=== PATIENT | female | born 1950 | race African-American/Black ===

== ENCOUNTER 2017-08-24 01:48 | Observation (INO) | payer BC ==
[2017-08-24] MEDS ORDERED: KETOROLAC TROMETHAMINE 60 MG/2 ML VIAL IM ONE (03:11)
[2017-08-24] MEDS ORDERED: diazePAM 5 MG TABLET PO ONE (03:12)
[2017-08-24] MEDS ORDERED: KETOROLAC TROMETHAMINE 60 MG/2 ML VIAL ONE (03:40)
[2017-08-24] MEDS ORDERED: diazePAM 5 MG TABLET ONE (03:40)
--- NOTE | 2017-08-24 03:59 | PDOC ---
History of Present Illness - General Chief Complaint: Pain, Acute Stated Complaint: LOWER BACK PAIN Time Seen by Provider: 08/24/17 02:02 - History of Present Illness Initial Comments: 08/24/17 03:58 CHIEF COMPLAINT: low back pain HISTORY OF PRESENT ILLNESS: 66 yo F with hx of insulin dependent diabetes presents to ED with back pain. Patient reports that she has had this problem before and frequently gets constipated and therefore takes laxatives and stool softeners regularly. She went to [facility] recently and had an abdominal CT done and told that she "has a lazy gut." She reports that over the course of the week she has worsening pain and that during this week she has noticed that sometimes "I will lose my urine and go on myself as I am walking to the bathroom." She also reports that it has been more difficulty recently to have bowel movements, even after taking her laxative and stool softeners, she feels "like I'm not getting everything out." No recent travel or sick contacts. PAST MEDICAL HISTORY: Denies past medical history FAMILY HISTORY: Denies SOCIAL HISTORY:Denies tobacco, alcohol, illicit drug use. SURGICAL HISTORY: Denies ALLERGIES: No known drug allergies REVIEW OF SYSTEMS General/Constitutional: Denies fever or chills. Denies weakness, weight change. HEENT: Denies change in vision. Denies ear pain or discharge. Denies sore throat. Cardiovascular: Denies chest pain or shortness of breath. Respiratory: Denies cough, wheezing, or hemoptysis. Gastrointestinal: Chronic constipation. Denies rectal bleeding. Genitourinary: Loss of bladder function. Musculoskeletal: Worsening back pain. Skin and breasts: Denies rash or easy bruising. Neurologic: Denies loss of sensation. PHYSICAL EXAM General Appearance: Well-appearing, appropriately dressed. No apparent distress , no intoxication. HEENT: EOMI, PERRLA, normal ENT inspection, normal voice, TMs normal, pharynx normal. No conjunctival pallor. No photophobia, scleral icterus. Neck: Supple. Trachea midline. No tenderness, rigidity, carotid bruit, stridor , lymphadenopathy, or thyromegaly. Respiratory/Chest: Lungs CTAB. No shortness of breath, chest tenderness, respiratory distress, accessory muscle use. No crackles, rales, rhonchi, stridor , wheezing, dullness Cardiovascular: RRR. S1, S2. Vascular Pulses: Dorsalis-Pedis (R): 2+, Dorsalis-Pedis (L): 2+ Gastrointestinal/Abdominal: Normal rectal tone. Normal bowel sounds. Abdomen soft, non-distended. No tenderness or rebound tenderness. No organomegaly, pulsatile mass, guarding, hernia, hepatomegaly, splenomegaly. Lymphatic: No adenopathy, tenderness. Musculoskeletal/Extremities: Patient unable to ambulate without assistance; tenderness to R lower back with midline tenderness at level of L4/L5. Pelvis Stable. No CVA tenderness. Sensory discrimination intact to b/l legs. No tenderness to extremities, pedal edema, swelling, erythema or deformity. Integumentary: Appropriate color, dry, warm. No cyanosis, erythema, jaundice or rash Neurologic: fish liver sorter II-XII intact. Fully oriented, alert. Appropriate mood/affect. Motor strength 5/5. No appreciable EOM palsy, facial droop or sensory deficit. Past History - Past Medical History Allergies/Adverse Reactions: Allergies Allergy/AdvReac Type Severity Reaction Status Date / Time acetaminophen [From Percocet] Allergy Verified 08/24/17 01:57 naproxen Allergy Verified 08/24/17 01:57 oxycodone HCl [From Percocet] Allergy Verified 08/24/17 01:57 Home Medications: Ambulatory Orders Insulin Detemir [Levemir Flextouch] 10 unit SQ DAILY 05/29/16 COPD: No Diabetes: Yes (NIDDM) - Suicide/Smoking/Psychosocial Hx Smoking History: Never smoked Have you smoked in the past 12 months: No Information on smoking cessation initiated: No Hx Alcohol Use: No Drug/Substance Use Hx: No Substance Use Type: None *Physical Exam - Vital Signs Last Vital Signs Temp Pulse Resp BP Pulse Ox 97.6 F 80 20 117/72 100 08/24/17 01:57 08/24/17 01:57 08/24/17 01:57 08/24/17 01:57 08/24/17 01:57 ED Treatment Course - LABORATORY CBC & Chemistry Diagram: 08/24/17 05:13 08/24/17 05:13 - RADIOLOGY Radiology Studies Ordered: Category Date Time Status LUMBAR SPINE CT W/O CONTRAST [CT] Stat CT Scan 08/24/17 02:35 Taken Medical Decision Making - Medical Decision Making 08/24/17 04:22 66 yo F with hx of insulin dependent diabetes presents to ED with worsening back pain. -UA, UCx -lumbar spine CT CT results: FINDINGS: There is a grade 1 degenerative anterolisthesis of L4 on L5 with associated facet arthrosis. There is diffuse ankylosis of the posterior elements and ossification of the anterior longitudinal ligament, suggesting ankylosis spondylitis, but the SI joints are not fused or demonstrate discrete erosions. Mild bilateral neural foraminal narrowing is noted at the L4-5 level secondary to facet joint arthrosis and geometric distortion from listhesis. There is also mild L5/S1 neural although there is osteoarthritis of both SI joints foraminal narrowing secondary to facet joint arthrosis IMPRESSION: Questionable ankylosing spondylitis although there is no fusion or erosions of the SI joints. Mild neural foraminal narrowing at the L4-5 and L5/S1 level due to degenerative changes. Consider MRI followup. Read by: Keanu Franz MD Will admit for obs to be seen by neurology in the morning. Discussed case with patient's PCP MD Rolon who accepts patient for observation. Neuro consult placed. *DC/Admit/Observation/Transfer Diagnosis at time of Disposition: Back pain at L4-L5 level - Discharge Dispostion Admit: Yes - Referrals Referrals: Chelita Rolon MD [Primary Care Provider] - - Patient Instructions - Post Discharge Activity
[2017-08-24 04:27] LABS: URINE APPEARANCE SLCLOUDY; URINE BILIRUBIN NEGATIVE (NEGATIVE); URINE BLOOD NEGATIVE (NEGATIVE); URINE COLOR YELLOW; URINE GLUCOSE (UA) NEGATIVE (NEGATIVE); URINE KETONE TRACE (NEGATIVE); URINE LEUK ESTERASE NEGATIVE (NEGATIVE); URINE NITRITE NEGATIVE (NEGATIVE); URINE PROTEIN NEGATIVE (NEGATIVE); URINE UROBILINOGEN NEGATIVE mg/dL (0.2-1.0)
[2017-08-24 05:28] LABS: BASO % 0.5 % (0-2.0); EOS % 0.7 % (0-4.5); HEMATOCRIT 39.3 % (32.4-45.2); HEMOGLOBIN 12.9 GM/dL (10.7-15.3); LYMPH % 37.8 % (8-40); MCH 27.3 pg (25.7-33.7); MCHC 32.8 g/dl (32.0-36.0); MEAN CELL VOLUME 83.1 fl (80-96); MEAN PLT VOLUME 8.5 fl (7.5-11.1); MONO % 9.4 % (3.8-10.2); NEUT % 51.6 % (42.8-82.8); PLATELET COUNT 258 K/MM3 (134-434); RBC 4.73 M/mm3 (3.60-5.2); RDW 14.3 % (11.6-15.6); WHITE BLOOD COUNT 6.2 K/mm3 (4.0-10.0)
[2017-08-24 07:03] LABS: ALBUMIN 3.5 g/dl (3.4-5.0); ALK PHOS 106 U/L (45-117); ANION GAP 9 (8-16); BILIRUBIN,TOTAL 0.5 mg/dL (0.2-1.0); BLOOD UREA NITROGEN 7 mg/dL (7-18); CALCIUM 9.2 mg/dL (8.5-10.1); CHLORIDE 103 mmol/L (98-107); CO2 27 mmol/L (21-32); CREATININE 0.4 mg/dL (0.55-1.02); GLUCOSE,RANDOM 140 mg/dL (74-106); SGPT/ALT 24 U/L (12-78); SODIUM 139 mmol/L (136-145); TOT PROT 7.2 g/dl (6.4-8.2)
[2017-08-24 07:21] LABS: POTASSIUM 4.5 mmol/L (3.5-5.1); SGOT/AST 23 U/L (15-37)
[2017-08-24 08:48] VITALS: BMI 30.7
[2017-08-24] MEDS ORDERED: diazePAM 5 MG TABLET PO PRN (11:13)
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
[2017-08-24] MEDS: INSULIN SLIDING SCALE (NOVOLOG) 1 VIAL SQ SCH ×2 (17:25→21:32)
[2017-08-24] MEDS: INSULIN DETEMIR 100 UNITS/ML MDV SQ SCH (21:33)
[2017-08-24] MEDS: KETOROLAC TROMETHAMINE 30 MG/1 ML VIAL IM PRN (22:51)
--- NOTE | 2017-08-24 22:52 | HP ---
Admitting History and Physical - Admission History of Present Illness: low back pain HISTORY OF PRESENT ILLNESS: 66 yo F with hx of insulin dependent diabetes presents to ED with back pain. Patient reports that she has had this problem before and frequently gets constipated and therefore takes laxatives and stool softeners regularly. She went to [facility] recently and had an abdominal CT done and told that she "has a lazy gut." She reports that over the course of the week she has worsening pain and that during this week she has noticed that sometimes "I will lose my urine and go on myself as I am walking to the bathroom." She also reports that it has been more difficulty recently to have bowel movements, even after taking her laxative and stool softeners, she feels "like I'm not getting everything out." History Source: Patient, Medical Record Limitations to Obtaining History: No Limitations - Past Medical History Gastrointestinal: Yes: Constipation Reproductive: Yes: Postmenopausal ...: No - Advance Directives Advance Directives: Yes: Living Will - Smoking History Smoking history: Never smoked Have you smoked in the past 12 months: No - Alcohol/Substance Use Hx Alcohol Use: No History of Substance Use: reports: None - Social History ADL: Independent History of Recent Travel: No Home Medications - Allergies Allergies/Adverse Reactions: Allergies Allergy/AdvReac Type Severity Reaction Status Date / Time acetaminophen [From Percocet] Allergy Verified 08/24/17 01:57 naproxen Allergy Verified 08/24/17 01:57 oxycodone HCl [From Percocet] Allergy Verified 08/24/17 01:57 - Home Medications Home Medications: Ambulatory Orders Insulin Detemir [Levemir Flextouch] 10 unit SQ DAILY 05/29/16 Review of Systems - Review of Systems Constitutional: reports: No Symptoms Eyes: reports: No Symptoms HENT: reports: No Symptoms Neck: reports: No Symptoms Cardiovascular: reports: No Symptoms Respiratory: reports: No Symptoms Gastrointestinal: reports: Bloating, Constipation, Indigestion. denies: Melena , Vomiting, Vomiting Blood Genitourinary: reports: Incontinence. denies: Dysuria, Flank Pain, Hematuria, Urgency Breasts: reports: No Symptoms Reported Musculoskeletal: reports: Back Pain, Extremity Pain (right leg) Integumentary: reports: No Symptoms Neurological: reports: No Symptoms, Parasthesia (right), Pre-Existing Deficit, Unsteady Gait Endocrine: reports: No Symptoms Hematology/Lymphatic: reports: No Symptoms Psychiatric: reports: No Symptoms Physical Examination Vital Signs: Vital Signs Temperature 98.3 F 08/24/17 17:18 Pulse Rate 72 08/24/17 17:18 Respiratory Rate 18 08/24/17 17:18 Blood Pressure 111/49 08/24/17 17:18 O2 Sat by Pulse Oximetry (%) 98 08/24/17 11:07 Constitutional: Yes: Well Nourished, No Distress, Calm Eyes: Yes: WNL, Conjunctiva Clear, EOM Intact HENT: Yes: Atraumatic, Normocephalic Neck: Yes: Supple, Trachea Midline Cardiovascular: Yes: Regular Rate and Rhythm Respiratory: Yes: Regular, CTA Bilaterally Gastrointestinal: Yes: Normal Bowel Sounds, Soft, Distention ...Rectal Exam: Yes: Deferred Renal/: Yes: WNL Breast(s): Yes: WNL Musculoskeletal: Yes: Back Pain, Other (radiating right leg pain weakness) Edema: No Peripheral Pulses WNL: Yes Integumentary: Yes: WNL Neurological: Yes: Numbness (right leg), Paresthesia (right leg), Unresponsive ...Motor Strength: RUE (decreased) Psychiatric: Yes: Alert, Oriented Labs: CBC, BMP 08/24/17 05:13 08/24/17 06:18 Problem List - Problems (1) Back pain at L4-L5 level Code(s): M54.5 - LOW BACK PAIN (2) Diabetes Code(s): E11.9 - TYPE 2 DIABETES MELLITUS WITHOUT COMPLICATIONS (3) Abdominal pain Code(s): R10.9 - UNSPECIFIED ABDOMINAL PAIN Qualifiers: Abdominal location: generalized Qualified Code(s): R10.84 - Generalized abdominal pain
[2017-08-25] MEDS: INSULIN SLIDING SCALE (NOVOLOG) 1 VIAL SQ SCH ×4 (06:15→21:06)
[2017-08-25 07:35] LABS: BASO % 0.6 % (0-2.0); EOS % 2.1 % (0-4.5); HEMATOCRIT 35.5 % (32.4-45.2); HEMOGLOBIN 11.5 GM/dL (10.7-15.3); LYMPH % 58.1 % (8-40); MCH 27.1 pg (25.7-33.7); MCHC 32.3 g/dl (32.0-36.0); MEAN CELL VOLUME 83.9 fl (80-96); MEAN PLT VOLUME 7.9 fl (7.5-11.1); MONO % 8.4 % (3.8-10.2); NEUT % 30.8 % (42.8-82.8); PLATELET COUNT 236 K/MM3 (134-434); RBC 4.23 M/mm3 (3.60-5.2); RDW 14.1 % (11.6-15.6); WHITE BLOOD COUNT 5.2 K/mm3 (4.0-10.0)
[2017-08-25 07:39] LABS: ALBUMIN 3.1 g/dl (3.4-5.0); ANION GAP 5 (8-16); BLOOD UREA NITROGEN 13 mg/dL (7-18); CALCIUM 8.3 mg/dL (8.5-10.1); CHLORIDE 105 mmol/L (98-107); CO2 29 mmol/L (21-32); GLUCOSE,RANDOM 101 mg/dL (74-106); MAGNESIUM 1.9 mg/dL (1.8-2.4); POTASSIUM 4.2 mmol/L (3.5-5.1); SGOT/AST 10 U/L (15-37); SODIUM 139 mmol/L (136-145)
[2017-08-25 07:41] LABS: CREATININE 0.4 mg/dL (0.55-1.02)
[2017-08-25 07:42] LABS: ALK PHOS 102 U/L (45-117); BILIRUBIN,TOTAL 0.3 mg/dL (0.2-1.0); PHOSPHOROUS 4.7 mg/dL (2.5-4.9); SGPT/ALT 21 U/L (12-78); TOT PROT 6.2 g/dl (6.4-8.2)
[2017-08-25] MEDS: LISINOPRIL 5 MG TABLET (FP) PO SCH (09:16)
--- NOTE | 2017-08-25 11:35 | PN ---
Progress Note (short form) - Note Progress Note: sitting in bed more comfortable today last night inc pain treated with ketoralac with improvement discussed evaluations to be done including MRI she reports she has ahd MRI in the past she also report hardware in left ankle Vital Signs Period Temp Pulse Resp BP Sys/Liang Pulse Ox Last 24 Hr 97.7 F-98.3 F 58-75 18-20 111-141/49-79 98-98 neck supple heart S1/S2 lungs clear bilat abd soft non tender ext no edema +palpable defority left ankle ( +tenderness with exam) numbness remains to right LE CBC, BMP 08/25/17 06:30 08/25/17 06:30 Microbiology 08/24/17 04:14 Urine - Urine Clean Catch Urine Culture - Final Active Medications Diazepam (Valium -) 5 mg PO Q8H PRN PRN Reason: BACK SPASMS Insulin Aspart (Novolog Vial Sliding Scale -) 1 vial SQ ACHS JOSE PRN Reason: Protocol Last Admin: 08/25/17 06:15 Dose: Not Given Insulin Detemir (Levemir Vial) 10 units SQ HS [facility] Last Admin: 08/24/17 21:33 Dose: 10 units Ketorolac Tromethamine (Toradol Injection -) 30 mg IM Q6H PRN PRN Reason: PAIN LEVEL 5-10 Stop: 08/29/17 22:43 Last Admin: 08/24/17 22:51 Dose: 30 mg Lisinopril (Prinivil) 5 mg PO DAILY [facility] Last Admin: 08/25/17 09:16 Dose: Not Given # acute on chronic back pain long standing back pain recently so bad began to have Gu/Gi problems Neurology / neurosurgical evaluation will need MRI pain management / physical therapy discussed pending work up with patient and possible options # DM insulin dependent on sliding scale Problem List - Problems (1) Back pain at L4-L5 level Code(s): M54.5 - LOW BACK PAIN (2) Diabetes Code(s): E11.9 - TYPE 2 DIABETES MELLITUS WITHOUT COMPLICATIONS (3) Abdominal pain Code(s): R10.9 - UNSPECIFIED ABDOMINAL PAIN Qualifiers: Abdominal location: generalized Qualified Code(s): R10.84 - Generalized abdominal pain
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
[2017-08-25] MEDS: INSULIN DETEMIR 100 UNITS/ML MDV SQ SCH (21:06)
[2017-08-25] MEDS ORDERED: PREGABALIN 75 MG CAPSULE PO SCH (22:00)
[2017-08-25] MEDS: POLYETHYLENE GLYCOL 3350 119 GM BTL PO SCH (23:47)
[2017-08-25] MEDS: DOCUSATE SODIUM 100 MG CAPSULE (FP) PO SCH (23:48)
[2017-08-26] MEDS: KETOROLAC TROMETHAMINE 30 MG/1 ML VIAL IM PRN (01:33)
[2017-08-26] MEDS ORDERED: INSULIN (NOVOLOG) ASPART 100 UNITS/ML 10ML VIAL ONE ×2 (07:12→20:36)
--- NOTE | 2017-08-26 09:09 | CONS ---
PHYSICAL MEDICINE REHABILITATION CONSULTATION REFERRING PHYSICIAN: Chelita Rolon MD DATE OF ADMISSION: 08/24/2017 DATE OF EVALUATION: 08/26/2017 HISTORY OF PRESENT ILLNESS: The patient is a 66-year-old woman with a past medical history of a insulin-dependent diabetes and intermittent chronic low back pain who was admitted on August 24, 2017, with increasing low back pain. Patient evidently had developed pain and fullness in her back and abdomen recently. She went to [facility] and thought she was constipated. At the time, she had a CT of the abdomen and was told she was constipated. The pain worsened over the week prior to admission, but was more localized across the back, sometimes radiating into the right lateral hip and buttocks. Patient underwent neurologic evaluation on August 24 as well as MRI of the lumbosacral spine, which demonstrated some facet arthropathy. Patient is on gabapentin 300 mg at bedtime and cyclobenzaprine. MRI report reviewed, and there was grade 1 anterolisthesis of L4 on L5, which was unchanged from prior study. There was also severe facet arthropathy, left more than right, at L4-L5 with no significant canal stenosis, but mild narrowing of the left neuroforamen as well as the right neuroforamen without any definite impingement. At L5-S1, there was bulging disc and bilateral posterior facet arthropathy, severe on the right, with mild narrowing of the right neuroforamen. Patient states she was given a Toradol shot and currently is feeling much better with less discomfort. Blood work showed normal CBC on admission as well as on followup August 25, with WBC 5.2, hemoglobin 11.5, platelet count 236. Chemistry within normal limits except that she has a slightly low creatinine of 0.4, normal sodium 139, normal potassium 4.2, chloride 105, and CO2 at 29, her albumin was low at 3.1. Patient also is on Valium 5 mg, MiraLAX, Toradol injections. Per her medication list, she is not taking gabapentin at bedtime. She is also on Colace. REVIEW OF PAST MEDICAL AND SURGICAL HISTORY: Insulin-dependent diabetes, chronic intermittent back pain, intermittent constipation. SOCIAL HISTORY: She lives with her in an apartment. There is an elevator for access. She denies any tobacco or alcohol. Premorbidly, she states she was ambulating without assistive device. ALLEGIES: OXYCODONE/ACETAMINOPHEN and NAPROXEN. REVIEW OF SYSTEMS: No current lightheadedness, dizziness. No blurry vision or double vision. No nausea, vomiting, difficulty swallowing. No chest pain or shortness of breath. No fever or chills. No bowel/bladder incontinence or retention, although she has been constipated in the past. No numbness/tingling in the upper or lower extremities. No gait instability, but she was having difficulty ambulating due to back pain. PHYSICAL EXAMINATION: General: On examination, an overweight woman, seen lying in bed as well as sitting and standing, in no acute distress. HEENT: She is normocephalic and atraumatic. Extraocular muscles appear intact. Neck: Supple. Lumbar: She has difficulty with extension 0-10 degrees with pain. No palpable spasm in the lumbosacral paraspinal, but diffuse tenderness. She is much better tolerated for reflection, negative [id number] test in both lower extremities. Extremities: No edema or calf tenderness. Skin: No rash. Neuromuscular: She is awake, alert, oriented x3. Cranial nerves 2-12 grossly intact. Good strength and range in the upper extremities and good strength and range in the lower extremities except for the hip girdle which causes a little bit of back pain. Normal sensation to light touch and pinprick. Symmetric reflexes, 1-2+ in the upper extremities, 2+ knee jerk, and 1+ ankle jerk. She has good standing balance and is able to ambulate without assistive device. OVERALL IMPRESSION: 1. Low back pain with underlying L4-L5 and L5-S1 facet arthropathy. 2. Deficits mobility. 3. Status post constipation. 4. Insulin-dependent diabetes. 5. Hypoalbuminemia. 6. Elevated risk for deep venous thrombosis due to immobility. PLANS AND SUGGESTIONS: 1. Consider pain management for facet block and possible radiofrequency ablation if pain continues. 2. Continue pain management. 3. Physical therapy for mobilization. 4. Would benefit from outpatient physical therapy. 5. Weight reduction. 6. Consider DVT prophylaxis until more mobile, subcutaneous heparin 5000 units q.12 hours. 7. Discharge planning home without outpatient therapy, car provided. Thank you for this referral. NEERAJ BAH M.D. ALESSIA/[id number]
[2017-08-26] MEDS: POLYETHYLENE GLYCOL 3350 119 GM BTL PO SCH (09:30)
[2017-08-26] MEDS: LISINOPRIL 5 MG TABLET (FP) PO SCH (09:30)
[2017-08-26] MEDS: INSULIN SLIDING SCALE (NOVOLOG) 1 VIAL SQ SCH ×4 (10:03→21:37)
--- NOTE | 2017-08-26 10:55 | DS ---
Physical Examination Vital Signs: Vital Signs Temperature 98.1 F 08/26/17 10:00 Pulse Rate 69 08/26/17 10:00 Respiratory Rate 20 08/26/17 10:00 Blood Pressure 110/70 08/26/17 10:00 O2 Sat by Pulse Oximetry (%) 97 08/26/17 03:00 Findings/Remarks: HISTORY OF PRESENT ILLNESS: 66 yo F with hx of insulin dependent diabetes presents to ED with back pain. Patient reports that she has had this problem before and frequently gets constipated and therefore takes laxatives and stool softeners regularly. She went to [facility] recently and had an abdominal CT done and told that she "has a lazy gut." She reports that over the course of the week she has worsening pain and that during this week she has noticed that sometimes "I will lose my urine and go on myself as I am walking to the bathroom." She also reports that it has been more difficulty recently to have bowel movements, even after taking her laxative and stool softeners, she feels "like I'm not getting everything out." Pain progress to complete incapacity - she reports is unable to get up and difficulty walking / pain not controlled with home management. Constitutional: Yes: Well Nourished, No Distress, Calm Eyes: Yes: WNL HENT: Yes: WNL, Atraumatic, Normocephalic Neck: Yes: WNL, Supple, Trachea Midline Cardiovascular: Yes: WNL, Regular Rate and Rhythm Respiratory: Yes: Regular, CTA Bilaterally Gastrointestinal: Yes: Normal Bowel Sounds, Soft ...Rectal Exam: Yes: Deferred Renal/: Yes: WNL Breast(s): Yes: WNL Musculoskeletal: Yes: WNL, Back Pain Extremities: No: Cyanosis, Deformity, External Rotation, Internal Rotation Edema: No Peripheral Pulses WNL: Yes Integumentary: Yes: WNL Neurological: Yes: Alert, Oriented ...Motor Strength: LUE (weakness), LLE (waekness) Psychiatric: Yes: Alert, Oriented Labs: CBC, BMP 08/25/17 06:30 08/25/17 06:30 Discharge Summary Reason For Visit: BACK PAIN Current Active Problems Back pain at L4-L5 level (Acute) Diabetes (Acute) Hospital Course: patient evaluated by Neurology / neurosurgery / and Physical therapy After review of imaging and physical exam all options discussed with patient . conservative treatment is best option and she prefers PT /would like to avoid narcotics. Arrangements for STR / vs out patient with home PT Insurance coverage and authorization may dictate discharge decision Condition: Fair - Instructions Referrals: Chelita Rolon MD [Primary Care Provider] - - Home Medications Comprehensive Discharge Medication List: Ambulatory Orders Insulin Detemir [Levemir Flextouch] 10 unit SQ DAILY 05/29/16 Tylenol 500mg PO q 8 hour PRN for pain Miralx 1 scoop with 6 OZ daily colace 200mg PO BID
[2017-08-26] MEDS ORDERED: MAGNESIUM CITRATE 300 ML BOTTLE PO ONE ×2 (12:00→15:00)
--- NOTE | 2017-08-26 12:25 | PN ---
Progress Note (short form) - Note Progress Note: MRI reviewed. No acute pathology mandating urgent Neurosurgical intervention. Case discussed with Dr. Rolon. I agree with plans for Pain Management at this time.
[2017-08-26] MEDS: DOCUSATE SODIUM 100 MG CAPSULE (FP) PO SCH (21:37)
[2017-08-26] MEDS: INSULIN DETEMIR 100 UNITS/ML MDV SQ SCH (21:38)
[2017-08-27] MEDS: INSULIN SLIDING SCALE (NOVOLOG) 1 VIAL SQ SCH ×2 (06:38→11:59)
[2017-08-27] MEDS ORDERED: PT OWN MED DRAWER 7, Y5N ONE (10:24)
[2017-08-27] MEDS: LISINOPRIL 5 MG TABLET (FP) PO SCH (10:30)
[2017-08-27] MEDS: POLYETHYLENE GLYCOL 3350 119 GM BTL PO SCH (10:31)
--- NOTE | 2017-08-27 12:06 | DS ---
Physical Examination Vital Signs: Vital Signs Temperature 98.3 F 08/27/17 05:37 Pulse Rate 72 08/27/17 05:37 Respiratory Rate 20 08/27/17 05:37 Blood Pressure 137/75 08/27/17 05:37 O2 Sat by Pulse Oximetry (%) 97 08/27/17 04:26 Labs: CBC, BMP 08/25/17 06:30 08/25/17 06:30 Discharge Summary Reason For Visit: BACK PAIN Current Active Problems Back pain at L4-L5 level (Acute) Diabetes (Acute) Condition: Fair - Instructions Referrals: Chelita Rolon MD [Primary Care Provider] - Disposition: HOME - Home Medications Comprehensive Discharge Medication List: Ambulatory Orders Insulin Detemir [Levemir Flextouch] 10 unit SQ DAILY 05/29/16 Docusate Sodium [Colace -] 200 mg PO HS capsule 08/27/17 Insulin (Levemir) [Levemir Vial] 10 units SQ HS ml 08/27/17 Polyethylene Glycol 3350 [Miralax 119 gm Btl -] 17 gm PO DAILY bottle 08/27/17
--- NOTE | 2017-08-27 12:24 | PN ---
Progress Note (short form) - Note Progress Note: seen in her room was ambulating in room report pain to left foot lateral and base of 5th digit Vital Signs Period Temp Pulse Resp BP Sys/Liang Pulse Ox Last 24 Hr 97.9 F-98.5 F 65-82 18-20 120-143/52-90 97-97 neck supple heart reg lungs clear bilat abd soft non tender ext no edema left foot no evidence of injury no swelling / erythema / or deformity CBC, BMP 08/25/17 06:30 08/25/17 06:30 Microbiology 08/24/17 04:14 Urine - Urine Clean Catch Urine Culture - Final Active Medications Docusate Sodium (Colace -) 200 mg PO HS JOSE Last Admin: 08/26/17 21:37 Dose: 200 mg Insulin Aspart (Novolog Vial Sliding Scale -) 1 vial SQ ACHS JOSE PRN Reason: Protocol Last Admin: 08/27/17 11:59 Dose: Not Given Insulin Detemir (Levemir Vial) 10 units SQ HS [facility] Last Admin: 08/26/17 21:38 Dose: 10 units Ketorolac Tromethamine (Toradol Injection -) 30 mg IM Q6H PRN PRN Reason: PAIN LEVEL 5-10 Stop: 08/29/17 22:43 Last Admin: 08/26/17 01:33 Dose: 30 mg Lisinopril (Prinivil) 5 mg PO DAILY [facility] Last Admin: 08/27/17 10:30 Dose: Not Given Polyethylene Glycol (Miralax (For Daily Use) -) 17 gm PO DAILY [facility] Last Admin: 08/27/17 10:31 Dose: Not Given # Chronic back pain acute exacerbation neuro / NS / PT eval conservative treatment home care and home PT # DM resume insulin magement follow up as out patient Problem List - Problems (1) Back pain at L4-L5 level Code(s): M54.5 - LOW BACK PAIN (2) Diabetes Code(s): E11.9 - TYPE 2 DIABETES MELLITUS WITHOUT COMPLICATIONS (3) Abdominal pain Code(s): R10.9 - UNSPECIFIED ABDOMINAL PAIN Qualifiers: Abdominal location: generalized Qualified Code(s): R10.84 - Generalized abdominal pain
[2017-08-27 14:42] VITALS: BP 129/64; PULSE 64; TEMP 99.5
== END 2017-08-27 16:04 | disposition home health service (06) ==
LOC: JER 01:48 → JERBED 06:17 → J7W 08:22 → J6S 08-27 00:38
PROVIDERS: ADMIT Family Medicine; ATTEND Family Medicine
PROC: 3E0233Z Introduction of Anti-inflammatory into Muscle, Percutaneous Approach (ICD-10-PCS; principal; 2017-08-24)
PROC: 3E013VG Introduction of Insulin into Subcutaneous Tissue, Percutaneous Approach (ICD-10-PCS; 2017-08-24)
DX: M54.5 Low back pain (principal); E11.9 Type 2 diabetes mellitus without complications; R10.84 Generalized abdominal pain; M47.9 Spondylosis, unspecified; G89.29 Other chronic pain; E88.09 Other disorders of plasma-protein metabolism, not elsewhere classified; Z88.8 Allergy status to other drugs, medicaments and biological substances; Z79.4 Long term (current) use of insulin
CPT/HCPCS: 36415; 72131-TC; 72148-TC; 73610-TC-LT-FY; 73630-TC-LT; 80053; 81003; 82962; 83036; 83735; 84100; 85025; 85651; 86140; 87086; 97116-GP; 97161-GP; 99283-25; G0378

== ENCOUNTER 2018-08-11 16:35 | Emergency (ER) | payer BC ==
[2018-08-11 17:01] VITALS: BP 130/63; PULSE 82; TEMP 97.9; BMI 33.0
[2018-08-11] MEDS ORDERED: ACETAMINOPHEN 325 MG TABLET (FP) PO ONE (17:03)
--- NOTE | 2018-08-11 17:06 | PDOC ---
Rapid Medical Evaluation Chief Complaint: Injury Time Seen by Provider: 08/11/18 17:00 Medical Evaluation: Allergies Allergy/AdvReac Type Severity Reaction Status Date / Time acetaminophen [From Percocet] Allergy Verified 08/11/18 16:55 naproxen Allergy Verified 08/11/18 16:55 oxycodone HCl [From Percocet] Allergy Verified 08/11/18 16:55 Vital Signs Temp Pulse Resp BP Pulse Ox 97.9 F 82 17 130/63 99 08/11/18 16:57 08/11/18 16:57 08/11/18 16:57 08/11/18 16:57 08/11/18 16:57 08/11/18 17:04 I have performed a brief in-person evaluation of this patient. The patient presents with a chief complaint of: R sided neck/shoulder/knee/hand pain s/p fall a couple of hours ago. Denies head trauma, no LOC Pertinent physical exam findings: R sided paraspinal muscular neck tenderness, no midline tenderness, Diffuse R shoulder/knee and hand tenderness. NO swelling I have ordered the following: R shoulder/knee/hand xrays, tylenol. Pt says that she is allergic to percocet but not tylenol The patient will proceed to the ED for further evaluation. Discharge Disposition - Diagnosis Fall Qualifiers: Encounter type: initial encounter Qualified Code(s): W19.XXXA - Unspecified fall, initial encounter - Referrals - Patient Instructions - Post Discharge Activity
[2018-08-11] MEDS ORDERED: ACETAMINOPHEN 325 MG TABLET (FP) ONE (17:45)
[2018-08-11] MEDS ORDERED: LIDOCAINE 5% TOPICAL PATCH TP ONE (18:34)
[2018-08-11] MEDS ORDERED: IBUPROFEN 600 MG TABLET (FP) PO ONE ×2 (18:34→18:41)
[2018-08-11] MEDS ORDERED: LIDOCAINE 5% TOPICAL PATCH ONE (18:41)
--- NOTE | 2018-08-11 18:46 | PDOC ---
History of Present Illness - General Chief Complaint: Injury Stated Complaint: FALL Time Seen by Provider: 08/11/18 17:00 History Source: Patient Exam Limitations: No Limitations Past History - Past Medical History Allergies/Adverse Reactions: Allergies Allergy/AdvReac Type Severity Reaction Status Date / Time naproxen Allergy Verified 08/11/18 16:55 oxycodone HCl [From Percocet] Allergy Verified 08/11/18 16:55 Home Medications: Ambulatory Orders Lidocaine 5% Patch [Lidoderm -] 1 patch TP DAILY #30 patch 08/11/18 COPD: Yes (bronchitis) Diabetes: Yes (NIDM) - Surgical History Orthopedic Surgery: Yes (l ankle screws and shunt) - Immunization History Immunization Up to Date: Yes - Suicide/Smoking/Psychosocial Hx Smoking History: Never smoked Have you smoked in the past 12 months: No Hx Alcohol Use: No Drug/Substance Use Hx: No Substance Use Type: None *Physical Exam - Vital Signs Last Vital Signs Temp Pulse Resp BP Pulse Ox 97.9 F 82 17 130/63 99 08/11/18 16:57 08/11/18 16:57 08/11/18 16:57 08/11/18 16:57 08/11/18 16:57 - Physical Exam General Appearance: No: Apparent Distress HEENT: positive: Other (Head atraumatic) Neck: positive: Supple. negative: Rigidity, Tender lateral, Tender midline Respiratory/Chest: positive: Lungs Clear, Normal Breath Sounds. negative: Respiratory Distress Cardiovascular: positive: Regular Rhythm, Regular Rate, S1, S2. negative: Murmur Musculoskeletal: positive: Other (+Pain with movement of R shoulder ( particularly abduction and external rotation), no step off, no deformity, no swelling of RUE, no snuffbox tenderness; able to flex/extend R knee) Integumentary: positive: Normal Color Neurologic: positive: robot operator II-XII NML intact, Fully Oriented, Alert, Normal Mood/ Affect Moderate Sedation - Procedure Monitoring Vital Signs: Procedure Monitoring Vital Signs Temperature 97.9 F 08/11/18 16:57 Pulse Rate 82 08/11/18 16:57 Respiratory Rate 17 08/11/18 16:57 Blood Pressure 130/63 08/11/18 16:57 O2 Sat by Pulse Oximetry (%) 99 08/11/18 16:57 ED Treatment Course - Medications Given in the ED: ED Medications Discontinued Medications Generic Name Dose Route Start Last Admin Trade Name Gretta PRN Reason Stop Dose Admin Acetaminophen 975 mg 08/11/18 17:03 08/11/18 17:52 Tylenol - PO 08/11/18 17:04 975 mg ONCE ONE Administration Medical Decision Making - Medical Decision Making 67 y/o F hx DM, anklyosing spondylitis presents with R sided pain after someone fell on her at [employer] today. Main site of pain is R shoulder, but also has some pain in R hand and R knee. Mentions she has injured her L shoulder last year and is undergoing physical therapy for this; recently had L shoulder and neck MRI done, with results pending, but it is possible she may have rotator cuff injury of L shoulder. Currently uses cane at baseline to get around. Mentions she hit front side of head on floor, but no LOC occurred. Denies n/v, visual/gait changes, numbness/tingling of extremities Xrays reviewed - no fracture/dislocation noted Slight narrowing along medial aspect of R knee joint Possible rotator cuff injury of R shoulder given its appearance on xray Patient given Tylenol in triage, but states usually Tylenol is ineffective and Motrin is more effective for her Given Motrin 600 mg and Lidocaine patch Patient has seen orthopedics once last year, but prefers different orthopedic doctor 08/11/18 18:43 *DC/Admit/Observation/Transfer Diagnosis at time of Disposition: Fall Qualifiers: Encounter type: initial encounter Qualified Code(s): W19.XXXA - Unspecified fall, initial encounter - Discharge Dispostion Disposition: HOME Condition at time of disposition: Stable Decision to Admit order: No - Prescriptions Prescriptions: Lidocaine 5% Patch [Lidoderm -] 1 patch TP DAILY #30 patch - Referrals Referrals: James Wooten [Primary Care Provider] - 3 days Pilo Christiansen DO [Staff Physician] - Call tomorrow - Patient Instructions Printed Discharge Instructions: DI for Rotator Cuff Injury Additional Instructions: Thank you for choosing [facility]. It was a pleasure taking care of you. You may take Tylenol 650 mg or Motrin 600 mg every 4 hours by mouth as needed for mild to moderate pain. Take Motrin with food. Do not take more than 4000 mg of Tylenol in 1 day. Also be aware that Motrin can affect your kidneys. You can also apply lidocaine patch to your right shoulder to help with pain Continue your physical therapy You were referred to orthopedic - call for further follow-up Return to the Emergency Department if your symptoms worsen or persist or have other concerning symptoms. - Post Discharge Activity
[2018-08-11] MEDS ORDERED: LIDOCAINE PATCH REMOVAL MC SCH (22:00)
== END 2018-08-11 19:22 | disposition home or self-care (01) ==
LOC: JERFT 16:35
DX: M54.2 Cervicalgia (principal); M25.511 Pain in right shoulder; M25.561 Pain in right knee; M79.641 Pain in right hand; W18.39XA Other fall on same level, initial encounter; Y93.89 Activity, other specified; Y92.512 Supermarket, store or market as the place of occurrence of the external cause; Y99.8 Other external cause status; E11.9 Type 2 diabetes mellitus without complications; Z79.84 Long term (current) use of oral hypoglycemic drugs; M45.9 Ankylosing spondylitis of unspecified sites in spine
CPT/HCPCS: 73030-TC-RT-FY; 73130-TC-RT-FY; 73562-TC-RT-FY; 99281-25

== ENCOUNTER 2019-02-25 23:51 | Inpatient (IN) | payer BC ==
[2019-02-26 00:08] VITALS: BMI 32.5
--- NOTE | 2019-02-26 00:42 | PDOC ---
History of Present Illness - General Chief Complaint: Pain, Acute Stated Complaint: CHEST DISCOMFORT Time Seen by Provider: 02/25/19 23:59 History Source: Patient Exam Limitations: No Limitations - History of Present Illness Initial Comments: 02/26/19 00:22 68 yo female pmh christiano spon, DM and recent elevation in cholesterol levels per recent blood work presents to the ED with sudden onsent non exertional CP. Pt states while resting in bed, she noted sudden onset RUQ abdominal pain that turned into CP described as pressure like with radiation down the left arm and into the left jaw with associated SOB. Pt states the pain comes in waves lasting 3 min. Pt took 81 mg ASA at home prior to calling EMS. Denies palpitations,F/C/N/V, current abdominal pain, back pain, changes in bowel or bladder habits Past History - Past Medical History Allergies/Adverse Reactions: Allergies Allergy/AdvReac Type Severity Reaction Status Date / Time naproxen Allergy Verified 02/26/19 00:08 oxycodone HCl [From Percocet] Allergy Verified 02/26/19 00:08 Home Medications: Ambulatory Orders Glipizide [Glucotrol -] 5 mg PO DAILY 02/26/19 Aspirin [ASA -] 81 mg PO DAILY #30 tab.chew 03/01/19 Atorvastatin Ca [Lipitor] 20 mg PO HS #30 tablet 03/01/19 Losartan Potassium [Cozaar -] 25 mg PO DAILY@0600 #30 tablet 03/01/19 Polyethylene Glycol 3350 [Miralax 119 gm Btl -] 17 gm PO DAILY #0 bottle COPD: No Diabetes: Yes (NIDM) - Surgical History Orthopedic Surgery: Yes (l ankle screws and shunt) - Immunization History Immunization Up to Date: Yes - Suicide/Smoking/Psychosocial Hx Smoking History: Never smoked Have you smoked in the past 12 months: No Hx Alcohol Use: No Drug/Substance Use Hx: No Substance Use Type: None Review of Systems - Review of Systems Constitutional: Yes: See HPI HEENTM: Yes: See HPI Respiratory: Yes: See HPI Cardiac (ROS): Yes: See HPI ABD/GI: Yes: See HPI : Yes: See HPI Musculoskeletal: Yes: See HPI Integumentary: Yes: See HPI Neurological: Yes: See HPI *Physical Exam - Vital Signs Last Vital Signs Temp Pulse Resp BP Pulse Ox 97.8 F 60 18 117/45 L 100 02/26/19 00:06 02/26/19 00:06 02/26/19 00:06 02/26/19 00:06 02/26/19 00:06 - Physical Exam General Appearance: Yes: Nourished, Appropriately Dressed. No: Apparent Distress HEENT: positive: EOMI Neck: positive: Supple. negative: Carotid bruit Respiratory/Chest: positive: Lungs Clear, Normal Breath Sounds. negative: Respiratory Distress, Accessory Muscle Use, Rapid RR, Decreased Breath Sounds, Crackles, Rales, Rhonchi, Stridor, Wheezing Cardiovascular: positive: Regular Rhythm, Regular Rate, S1, S2. negative: Edema , JVD, Murmur Vascular Pulses: Dorsalis-Pedis (R): 3+, Doralis-Pedis (L): 3+ Gastrointestinal/Abdominal: positive: Flat, Soft. negative: Pulsatile Mass, Protuberent, Distended, Guarding, Rebound, Tenderness Musculoskeletal: negative: CVA Tenderness Extremity: positive: Normal Capillary Refill, Normal Inspection Integumentary: positive: Normal Color, Dry, Warm Neurologic: positive: Fully Oriented, Alert, Normal Mood/Affect Heart Score/ECG Review - History History: Moderately suspicious - Electrocardiogram EKG: Normal - Age Age: >/= 65 - Risk Factors Risk Factors Heart Score: Yes Hx Hypercholesterolemia, No Hx Hypertension, Yes Hx Diabetes, No Smoking History, No Positive family hx of cardiac disease, No Hx Obesity Based on the list above the patient has:: >/=3 risk factors or Hx atherosclerotic disease - Troponin Troponin: </= normal limit - Score Heart Score - Total: 5 - ECG Intrepretation Rhythm: Regular Rhythm - [place]: Normal ED Treatment Course - LABORATORY CBC & Chemistry Diagram: 02/27/19 07:41 02/27/19 07:41 - RADIOLOGY Radiology Studies Ordered: Category Date Time Status CHEST X-RAY PORTABLE* [RAD] Stat Radiology 02/26/19 00:15 Ordered Medical Decision Making - Medical Decision Making 68 yo female pmh christiano spon, DM and recent elevation in cholesterol levels per recent blood work presents to the ED with sudden onsent non exertional CP. Pt states while resting in bed, she noted sudden onset RUQ abdominal pain that turned into CP described as pressure like with radiation down the left arm and into the left jaw with associated SOB. Pt states the pain comes in waves lasting 3 min. Pt took 81 mg ASA at home prior to calling EMS. Denies palpitations,F/C/N/V, current abdominal pain, back pain, changes in bowel or bladder habits Vitals WNL heart score 5 DDX INLT: ACS, PE (unlikely, not tachy or hypoxic), GERD, ulcer, AAA CXR no signs of AAA, no acute path EKG NSR without signs of Ischemia Trop neg Pt does not normally have CP and due to the convincing description of pain along with elevated heart score, pt requires admission for ACS r/o *DC/Admit/Observation/Transfer Diagnosis at time of Disposition: Chest pain, rule out acute myocardial infarction - Discharge Dispostion Condition at time of disposition: Stable Decision to Admit order: Yes - Referrals - Patient Instructions - Post Discharge Activity
--- NOTE | 2019-02-26 01:02 | PDOC ---
Documentation entered by Anthony Keyse SCRIBE, acting as scribe for Regine Faust DO. Regine Faust DO: This documentation has been prepared by the Wali butler Daniel, SCRIBE, under my direction and personally reviewed by me in its entirety. I confirm that the documentation accurately reflects all work, treatment, procedures, and medical decision making performed by me. Attending Attestation - Resident Resident Name: Donald Cueva - ED Attending Attestation I have performed the following: I have examined & evaluated the patient, The case was reviewed & discussed with the resident, I agree w/resident's findings & plan, Exceptions are as noted - HPI HPI: 02/26/19 00:29 The patient is a 68 year old female with a past medical history of ankylosing spondylosis, HLD, and diabetes here today for evaluation of chest pain. The patient reports that her chest pain is non exertional and developed while she was lying in bed. She describes her pain as starting in the right upper quadrant which migrated to the chest, is a pressure like pain, radiates to the left arm and jaw, and associated shortness of breath. Patient denies headache, lightheadedness. Denies fever, chills. Denies nausea, vomiting, diarrhea, abdominal pain. Allergies: naproxen, oxycodone HCL - Physicial Exam PE: 02/26/19 00:56 Gen: aaox3, nad heart: +s1s2 reg lungs: cta b/l abd: soft, nt/nd +bs ext: no c/c/e - Medical Decision Making 02/26/19 00:56 I, Dr. Regine Faust DO, attest that this document has been prepared under my direction and personally reviewed by me in its entirety. I further attest, that it accurately reflects all work, treatment, procedures and medical decision -making performed by me. 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
[2019-02-26] MEDS ORDERED: ASPIRIN 81 MG CHEWABLE TABLETS PO ONE (01:34)
[2019-02-26] MEDS ORDERED: ASPIRIN 81 MG CHEWABLE TABLETS ONE (01:37)
[2019-02-26 01:38] LABS: BASO % 0.4 % (0-2.0); INR 0.94 (0.83-1.09); LYMPH % 51.7 % (8-40); MCH 28.2 pg (25.7-33.7); MCHC 33.3 g/dl (32.0-36.0); MEAN CELL VOLUME 84.6 fl (80-96); MONO % 8.3 % (3.8-10.2); NEUT % 37.6 % (42.8-82.8); PLATELET COUNT 253 K/MM3 (134-434); PROTHROMBIN TIME (PATIENT) 11.1 SEC (9.7-13.0); RBC 4.25 M/mm3 (3.60-5.2); RDW 13.6 % (11.6-15.6); WHITE BLOOD COUNT 5.5 K/mm3 (4.0-10.0)
[2019-02-26 01:41] LABS: ACTIVATED PTT 27.1 SECONDS (25.2-36.5)
[2019-02-26 03:21] LABS: ALBUMIN 3.6 g/dl (3.4-5.0); ALK PHOS 229 U/L (45-117); ANION GAP 9 MMOL/L (8-16); BILIRUBIN,TOTAL 0.3 mg/dL (0.2-1); BLOOD UREA NITROGEN 12.8 mg/dL (7-18); CALCIUM 8.7 mg/dL (8.5-10.1); CHLORIDE 106 mmol/L (98-107); CO2 26 mmol/L (21-32); CREATININE 0.4 mg/dL (0.55-1.3); GLUCOSE,RANDOM 187 mg/dL (74-106); N-TERMINAL BNP 86.9 pg/ml (5-125); POTASSIUM 5.1 mmol/L (3.5-5.1); SGOT/AST 32 U/L (15-37); SGPT/ALT 25 U/L (13-61); SODIUM 141 mmol/L (136-145); TOT PROT 7.3 g/dl (6.4-8.2)
[2019-02-26] MEDS ORDERED: NITROGLYCERIN 2% OINTMENT - 1GM PACKET TD ONE (04:51)
--- NOTE | 2019-02-26 04:54 | HP ---
CHIEF COMPLAINT: "I am having several episodes of right sided abdominal pain with radiation to chest, left arm, jaw, neck and back since 5:30pm that lasts about 2-3 minutes. PCP:Patient has a physician at [facility], name unknown. HISTORY OF PRESENT ILLNESS: This is a 68 year old female with history of type II diabetes mellitus(on oral meds) and with a high cholesterol level in October (on no meds) , and multiple injuries to spine, shoulders and rotator cuff due to falls (ambulates with a cane) who presents to the ED with symptoms reporting right sided abdominal pain described as an "indigestion and burning sensation" that started at 5:30 pm after she had [place] food. Patient reported symptoms lasted about 2-3 minutes and subsided. She reported at 10:30 pm she had recurrent symptoms of right upper quadrant abdominal pain while she was watching a movie in bed which radiated to her left arm, jaw, neck and left side of chest. She also reported shortness of breath and back pain. Chest pain is nonreproducible. She reports she had an echocardiogram about 5 years ago and was told it was normal. Currently she reports minimal chest discomfort. Upon evaluation in the ER EKG showed sinus bradycardia with no signs of acute ischemia. CXR is unremarkable and first troponin and BNP is normal. Recent Travel: denies PAST MEDICAL HISTORY: type II diabetes mellitus elevated cholesterol levels in February PAST SURGICAL HISTORY: denies Social History: Smoking:no Alcohol:no Drugs: no Family History: Father and mother of cancer. Denies heart disease in family. Allergies naproxen Allergy (Verified 02/26/19 00:08) oxycodone HCl [From Percocet] Allergy (Verified 02/26/19 00:08) HOME MEDICATIONS: Home Medications Medication Instructions Recorded Glipizide [Glucotrol -] 5 mg PO DAILY 02/26/19 REVIEW OF SYSTEMS CONSTITUTIONAL: Absent: fever, chills, diaphoresis, generalized weakness, malaise, loss of appetite, weight change HEENT: Absent: rhinorrhea, nasal congestion, throat pain, throat swelling, difficulty swallowing, mouth swelling, ear pain, eye pain, visual changes CARDIOVASCULAR: Absent: chest and back pain as above, syncope, palpitations, irregular heart rate, lightheadedness, peripheral edema RESPIRATORY: Absent: cough, shortness of breath, dyspnea with exertion, orthopnea, wheezing, stridor, hemoptysis GASTROINTESTINAL: Absent: right sided abdominal pain, abdominal distension, nausea, vomiting, diarrhea, constipation, melena, hematochezia GENITOURINARY: Absent: dysuria, frequency, urgency, hesitancy, hematuria, flank pain, genital pain MUSCULOSKELETAL: Absent: myalgia, arthralgia, joint swelling, back pain, neck pain SKIN: Absent: rash, itching, pallor HEMATOLOGIC/IMMUNOLOGIC: Absent: easy bleeding, easy bruising, lymphadenopathy, frequent infections ENDOCRINE: Absent: unexplained weight gain, unexplained weight loss, heat intolerance, cold intolerance NEUROLOGIC: Absent: headache, focal weakness or paresthesias, dizziness, unsteady gait, seizure, mental status changes, bladder or bowel incontinence PSYCHIATRIC: Absent: anxiety, depression, suicidal or homicidal ideation, hallucinations. PHYSICAL EXAMINATION Vital Signs - 24 hr 02/26/19 02/26/19 00:06 02:23 Temperature 97.8 F Pulse Rate 60 Pulse Rate [ 56 L Apical] Respiratory 18 18 Rate Blood Pressure 117/45 L Blood Pressure 134/61 [Left Arm] O2 Sat by Pulse 100 97 Oximetry (%) GENERAL: awake alert and fully oriented no acute distress HEAD: normal EARS, NOSE, THROAT: ears normal, nares patent NECK: normal range of motion supple LUNGS: breath sounds equal and clear to auscultation bilaterally no wheezes and no crackles no accessory muscle use HEART: regular rate and rhythm normal S1 and S2 without murmur ABDOMEN: soft nontender not distended normoactive bowel sounds, no guarding MUSCULOSKELETAL: limited range of motion at all joints no bony deformities or tenderness UPPER EXTREMITIES: 2+ pulses warm well-perfused no cyanosis no peripheral edema LOWER EXTREMITIES: 2+ pulses warm well-perfused no pitting edema NEUROLOGICAL: normal speech PSYCHIATRIC: cooperative good eye contact SKIN: warm dry normal turgor no rashes or lesions noted Laboratory Results - last 24 hr 02/26/19 02/26/19 02/26/19 00:40 00:50 00:50 WBC 5.5 RBC 4.25 Hgb 12.0 Hct 36.0 MCV 84.6 MCH 28.2 MCHC 33.3 RDW 13.6 Plt Count 253 MPV 8.0 Absolute Neuts (auto) 2.1 Neutrophils % 37.6 L D Lymphocytes % 51.7 H D Monocytes % 8.3 Eosinophils % 2.0 D Basophils % 0.4 Nucleated RBC % 0 PT with INR 11.10 INR 0.94 PTT (Actin FS) 27.1 Sodium 141 Potassium 5.1 Chloride 106 Carbon Dioxide 26 Anion Gap 9 BUN 12.8 Creatinine 0.4 L Est GFR (CKD-EPI)AfAm 122.31 Est GFR (CKD-EPI)NonAf 105.53 Random Glucose 187 H Calcium 8.7 Total Bilirubin 0.3 AST 32 ALT 25 Alkaline Phosphatase 229 H Creatine Kinase 126 Troponin I < 0.02 B-Natriuretic Peptide 86.9 Total Protein 7.3 Albumin 3.6 ASSESSMENT/PLAN: 68 year old female with history of type II diabetes mellitus(on oral meds) and with high cholesterol level in October(on no meds) and multiple injuries to spine , shoulders and rotator cuff due to falls who presented with symptoms of reoccurring right sided abdominal pain described as an "indigestion and burning sensation" that started at 5:30 pm with radiation to left arm, jaw, neck ,chest and back and associated with shortness of breath. #1 Abdominal/Chest Pain R/O ACS Symptoms concerning for angina versus ACS Workup -EKG showed sinus bradycardia with no signs of acute ischemia. CXR unremarkable, first troponin normal, no evidence of tachycardia or hypoxia,BP normal. Currently reports minimal symptoms of chest pain and chest pain is nonreproducible Added aspirin and ordered 1/2 inch of topical nitropaste Continue to trend troponins Check D-Dimer Check fasting lipid panel this morning Will keep patient NPO in anticipation of stress test BNP normal and on clinical exam with no signs of acute congestive heart failure. Echocardiogram ordered to exclude wall motion and valvular abnormalities and evaluate LV function Cardiology consulted- Dr. Eden. #2 Diabetes Mellitus Accucheks before meals and at bedtime Insulin as per sliding scale Check hemoglobin a1c #3 Mild Hyperkalemia Repeat BMP in am Visit type - Emergency Visit Emergency Visit: Yes ED Registration Date: 02/26/19 Care time: The patient presented to the Emergency Department on the above date and was hospitalized for further evaluation of their emergent condition. - New Patient This patient is new to me today: Yes Date on this admission: 02/26/19 - Critical Care Critical Care patient: No
[2019-02-26] MEDS: INSULIN SLIDING SCALE (NOVOLOG) 1 VIAL SQ SCH ×2 (06:09→18:47)
[2019-02-26] MEDS ORDERED: glipiZIDE 5 MG TABLET (FP) PO SCH (07:00)
[2019-02-26 07:02] LABS: ANION GAP 6 MMOL/L (8-16); BLOOD UREA NITROGEN 11.6 mg/dL (7-18); CALCIUM 8.8 mg/dL (8.5-10.1); CHLORIDE 107 mmol/L (98-107); CHOLESTEROL 189 mg/dL (50-200); CO2 29 mmol/L (21-32); CREATININE 0.6 mg/dL (0.55-1.3); GLUCOSE,RANDOM 222 mg/dL (74-106); SODIUM 143 mmol/L (136-145)
--- NOTE | 2019-02-26 08:18 | CON.CARD ---
Consult Consult Specialty:: Cardiology Referred by:: Dr. Son Reason for Consultation:: chest pain - History of Present Illness Chief Complaint: Chest pain History of Present Illness: 68F w/ DM, prior left shoulder injury, presented to ER w/ abdominal pain after eating [place] food and then developed left sided shoulder pressure radiating to central chest, at rest. Lasted about 10-15 minutes, on and off. No associated N/V or diaphoresis. Usually has no chest pain or tightness w/ exertion. Denies prior cardiac hx. No prior stress test. Denies palps, syncope. No edema or CHF sx. No fever, chills. No cough - History Source History Provided By: Patient - Past Medical History Cardio/Vascular: No: AFIB, Aneurysm, Aortic Insufficiency, Aortic Stenosis, CAD , CHF, Deep Vein Thrombosis, HTN, Hyperlipdemia, VT, Mitral Insufficiency, Mitral Stenosis, Murmur, Pulmonary Hypertension, Other Pulmonary: No: Asthma, Bronchitis, Cancer, COPD, O2 Dependent, Pneumonia, Previously Intubated, Pulmonary Embolus, Pulmonary Fibrosis, Sleep Apnea, Other Gastrointestinal: Yes: Constipation Hepatobiliary: No: Cirrhosis, Cholelithiasis, Cholecystitis, Choledocholithiasis , Hepatitis A, Hepatitis B, Hepatitis C, Other Renal/: No: Renal Failure, Renal Inusuff, BPH, Cancer, Hematuria, Hemodialysis , Neurogenic Bladder, Renal Calculi, UTI, Other Reproductive: No: Ectopic , Endometriosis, Fibroids, PID, Polycystic Ovary Syndrome, Postmenopausal, Other Endocrine: Yes: Diabetes Mellitus - Alcohol/Substance Use Hx Alcohol Use: No History of Substance Use: reports: None - Smoking History Smoking history: Never smoked Have you smoked in the past 12 months: No - Social History ADL: Independent History of Recent Travel: No Home Medications - Allergies Allergies/Adverse Reactions: Allergies Allergy/AdvReac Type Severity Reaction Status Date / Time naproxen Allergy Verified 02/26/19 00:08 oxycodone HCl [From Percocet] Allergy Verified 02/26/19 00:08 - Home Medications Home Medications: Ambulatory Orders Glipizide [Glucotrol -] 5 mg PO DAILY 02/26/19 Family Disease History - Family Disease History Family History: Unremarkable (no early CAD) Review of Systems - Review of Systems Constitutional: reports: No Symptoms Eyes: reports: No Symptoms HENT: reports: No Symptoms Neck: reports: No Symptoms Cardiovascular: reports: Chest Pain Respiratory: reports: No Symptoms Gastrointestinal: reports: Abdominal Pain Endocrine: reports: No Symptoms Hematology/Lymphatic: reports: No Symptoms Psychiatric: reports: No Symptoms - Risk Factors Known Risk Factors: Yes: Diabetes Mellitus Vital Signs: Vital Signs Temperature 98.8 F 02/26/19 05:46 Pulse Rate 74 02/26/19 05:46 Respiratory Rate 18 02/26/19 05:46 Blood Pressure 157/62 02/26/19 05:46 O2 Sat by Pulse Oximetry (%) 100 02/26/19 05:46 Constitutional: Yes: No Distress, Calm Eyes: Yes: Conjunctiva Clear, EOM Intact HENT: Yes: Atraumatic, Normocephalic Neck: Yes: Trachea Midline Respiratory: Yes: CTA Bilaterally (no wheezing or rales) Gastrointestinal: Yes: Soft (NT, no rebound or guarding) Cardiovascular: Yes: Regular Rate and Rhythm JVD: No Carotid Bruit: No PMI: Non-Displaced Heart Sounds: Yes: S1, S2 (RRR, no M/R/G) Edema: No Neurological: Yes: Alert, Oriented ...Motor Strength: WNL - Other Data Labs, Other Data: CBC, BMP 02/26/19 00:50 02/26/19 06:05 INR, PTT INR 0.94 (0.83-1.09) 02/26/19 00:50 Troponin, BNP 02/26/19 00:40 Troponin I < 0.02 B-Natriuretic Peptide 86.9 Troponin, BNP 02/26/19 00:40 Troponin I < 0.02 B-Natriuretic Peptide 86.9 Laboratory Tests 02/26/19 02/26/19 02/26/19 00:40 00:50 06:05 WBC 5.5 Hgb 12.0 Plt Count 253 D-Dimer Sodium 143 Potassium 4.0 Creatinine 0.6 Troponin I < 0.02 02/26/19 06:05 WBC Hgb Plt Count D-Dimer Pending Sodium Potassium Creatinine Troponin I NSR, no acute changes. Echo: Pending Imaging - Results X-ray: Image Reviewed EKG: Image Reviewed Assessment/Plan IMP: 1. DM, type 2 2. Atypical CP- may be related to prior left shoulder injury R/o ischemia Doubt PE (normal O2 sat/ not tachycardic) REC: 1. Cardiac enzymes x 3 2. ASA 81mg daily 3. Echo for EF, eval RV and RVSP 4. Will try for nuclear stress later today after enzymes. Reagan have light breakfast
[2019-02-26] MEDS: ASPIRIN 81 MG CHEWABLE TABLETS PO SCH (09:32)
--- NOTE | 2019-02-26 09:56 | ECHO ---
Name: FRANKIE BOSE Exam:Adult Echocardiogram Study Date: 02/26/2019 08:19 AM Age: 68 yrs Reason For Study: CHEST PAIN SOB Height: 61 in Weight: 172 lb BSA: 1.8 m2 MMode/2D Measurements & Calculations IVSd: 0.84 cm LA dimension: 2.7 cm LVIDd: 4.3 cm LVIDs: 2.8 cm LVPWd: 0.82 cm EDV(Teich): 84.9 ml LVOT diam: 2.0 cm ESV(Teich): 29.8 ml Doppler Measurements & Calculations MV E max juice: 82.1 cm/sec Ao V2 max: 114.7 cm/sec MV A max juice: 72.5 cm/sec Ao max P.3 mmHg MV E/A: 1.1 Ao V2 mean: 81.7 cm/sec MV dec time: 0.21 sec Ao mean P.9 mmHg Ao V2 VTI: 27.9 cm RASHID(I,D): 2.0 cm2 RASHID(V,D): 1.9 cm2 LV V1 max P.8 mmHg MR max juice: 232.4 cm/sec LV V1 mean P.93 mmHg MR max P.6 mmHg LV V1 max: 66.9 cm/sec LV V1 mean: 45.1 cm/sec LV V1 VTI: 16.8 cm SV(LVOT): 54.6 ml TR max juice: 209.6 cm/sec TR max P.7 mmHg PA V2 max: 71.9 cm/sec PI end-d juice: 88.9 cm/sec PA max P.1 mmHg Med Peak E' Juice: 7.2 cm/sec Med E/e': 11.3 Lat Peak E' Juice: 5.6 cm/sec Lat E/e': 14.8 Left Ventricle The left ventricular size, thickness and function are normal. Ejection Fraction = 55-60%. The transmi tral spectral Doppler flow pattern is normal for age. Right Ventricle The right ventricle is normal in size and function. Atria Normal left and right atrial size and function. Mitral Valve The mitral valve is normal in structure and function. There is no mitral valve stenosis. There is mil d mitral regurgitation. Tricuspid Valve The tricuspid valve is normal in structure and function. There is mild tricuspid regurgitation. Right ventricular systolic pressure is normal. Aortic Valve The aortic valve is trileaflet. No hemodynamically significant valvular aortic stenosis. No aortic regurgitation is present. Pulmonic Valve The pulmonic valve is not well seen, but is grossly normal. There is no pulmonic valvular stenosis. M ild pulmonic valvular regurgitation. Great Vessels The aortic root is normal size. Pericardium/Pleura There is no pericardial effusion. Interpretation Summary The left ventricular size, thickness and function are normal Ejection Fraction = 55-60%. The right ventricle is normal in size and function. There is mild mitral regurgitation. There is mild tricuspid regurgitation. Right ventricular systolic pressure is normal. There is no pericardial effusion. MD Moreau *Patricia 02/26/2019 09:55 AM
--- NOTE | 2019-02-26 10:39 | PN ---
Progress Note, Physician Chief Complaint: AWAKE ALERT FAMILY BEDSIDE CHART AND NOTES REVIEWED DENIES CP OR SOB AT MOMENT BUT DID HAVE SYMPTOMS YESTERDAY - Current Medication List Current Medications: Active Medications Aspirin (Asa -) 81 mg PO DAILY [facility] Last Admin: 02/26/19 09:32 Dose: Not Given Insulin Aspart (Novolog Vial Sliding Scale -) 1 vial SQ BIDAC [facility]; Protocol Last Admin: 02/26/19 06:09 Dose: Not Given - Objective Vital Signs: Vital Signs Temperature 98.8 F 02/26/19 05:46 Pulse Rate 74 02/26/19 05:46 Respiratory Rate 18 02/26/19 05:46 Blood Pressure 157/62 02/26/19 05:46 O2 Sat by Pulse Oximetry (%) 100 02/26/19 05:46 Constitutional: Yes: Mild Distress Eyes: Yes: WNL HENT: Yes: WNL Neck: Yes: WNL Cardiovascular: Yes: WNL Respiratory: Yes: Regular Gastrointestinal: Yes: WNL Genitourinary: Yes: WNL Musculoskeletal: Yes: WNL Extremities: Yes: WNL Edema: No Peripheral Pulses WNL: Yes Integumentary: Yes: WNL Wound/Incision: Yes: Clean/Dry Neurological: Yes: WNL ...Motor Strength: WNL Psychiatric: Yes: WNL Labs: CBC, BMP 02/26/19 00:50 02/26/19 06:05 INR, PTT INR 0.94 (0.83-1.09) 02/26/19 00:50 Problem List - Problems (1) Chest pain, rule out acute myocardial infarction Code(s): R07.9 - CHEST PAIN, UNSPECIFIED (2) Diabetes Code(s): E11.9 - TYPE 2 DIABETES MELLITUS WITHOUT COMPLICATIONS Assessment/Plan CARDIO/PULMONARY WORKUP IN PROGRESS ON TELEMETRY NO ALARMS STRESS TODAY CHECK CTA LUNGS WITH D-DIMER POSITIVE R/O PE DVT PROPHYLAXIS OOB TO CHAIR
--- NOTE | 2019-02-26 11:35 | EKG ---
Test Reason : Blood Pressure : / mmHG Vent. Rate : 057 BPM Atrial Rate : 057 BPM P-R Int : 192 ms QRS Dur : 078 ms QT Int : 436 ms P-R-T Axes : 057 018 043 degrees QTc Int : 424 ms SINUS BRADYCARDIA WHEN COMPARED WITH ECG OF 26-FEB-2019 00:26, NO SIGNIFICANT CHANGE WAS FOUND Confirmed by MI MAGAÑA MD ([id number]) on 02/26/2019 11:34:28 AM Referred By: SIMONE WAGNER Confirmed By:MI MAGAÑA MD
--- NOTE | 2019-02-26 11:37 | EKG ---
Test Reason : Blood Pressure : / mmHG Vent. Rate : 057 BPM Atrial Rate : 057 BPM P-R Int : 204 ms QRS Dur : 086 ms QT Int : 414 ms P-R-T Axes : 059 018 040 degrees QTc Int : 402 ms SINUS BRADYCARDIA OTHERWISE NORMAL ECG WHEN COMPARED WITH ECG OF 29-MAY-2016 00:35, NO SIGNIFICANT CHANGE WAS FOUND Confirmed by MI MAGAÑA MD ([id number]) on 02/26/2019 11:36:39 AM Referred By: Confirmed By:MI MAGAÑA MD
--- NOTE | 2019-02-26 13:27 | PN ---
Progress Note (short form) - Note Progress Note: PULMONARY CONSULTATION DICTATED 02/26/19 IMP CHEST PAIN/SHOULDER PAIN R/O CARDIAC ELEVATED D-DIMER HLD PLAN CHEST CTA CARDIAC W/U PER CARDIOLOGY ASA MONITOR BLOOD SUGARS DR ARTIS Problem List - Problems (1) Elevated d-dimer Code(s): R79.89 - OTHER SPECIFIED ABNORMAL FINDINGS OF BLOOD CHEMISTRY (2) Chest pain, rule out acute myocardial infarction Code(s): R07.9 - CHEST PAIN, UNSPECIFIED (3) Abdominal pain Code(s): R10.9 - UNSPECIFIED ABDOMINAL PAIN Qualifiers: Abdominal location: generalized Qualified Code(s): R10.84 - Generalized abdominal pain (4) Diabetes Code(s): E11.9 - TYPE 2 DIABETES MELLITUS WITHOUT COMPLICATIONS
--- NOTE | 2019-02-26 14:26 | CONS ---
PULMONARY CONSULTATION DATE OF CONSULTATION: 02/26/2019 REFERRING PHYSICIAN: Ning Son MD HISTORY OF PRESENT ILLNESS: The patient is a 68-year-old, black female with past medical history of ankylosing spondylitis, hyperlipidemia, diabetes, nonsmoker. Admitted to [facility] with complaint of chest pain radiating to the left arm and jaw. Patient states she was in bed and suddenly developed mild abdominal discomfort she said like a cramping sensation. Started developing pain radiating to the left arm with associated chest tightness, as well as mild shortness of breath, and pain radiating to the jaw. She went to the emergency room with the above. She described the pain in the chest as pressure-like, nonpleuritic. She denied any hemoptysis. Denied any fevers or chills. Denied any diaphoresis. Denied any nausea or vomiting. She presented to the emergency room. In the ER, she was noted on EKG to have sinus bradycardia, with a first-degree AV block, and no acute ST-T-wave changes. She was also noted to have an elevated D-dimer level greater than 700. She was admitted to the telemetry unit for further monitoring. The patient is a nonsmoker. She denies any history of occupational exposure to chemicals or fumes. There is no history of DVT or PE in the past. There is no history of recent travel. PAST MEDICAL HISTORY: Includes ankylosing spondylitis, hyperlipidemia, and diabetes. REVIEW OF SYSTEMS: Positive chest pressure. Positive abdominal pain. Positive chest pain radiating to the left shoulder and jaw. No lower extremity edema. CURRENT MEDICATIONS: Include Aspirin and NovoLog. PHYSICAL EXAMINATION: General: The patient is a well-developed, well-nourished female, awake, alert, in no acute distress. Vital Signs: She is afebrile, blood pressure is 157/62, respiratory rate is 18, O2 saturation is 100% on room air. HEENT: Exam is normocephalic, atraumatic. Neck: Supple. Heart: Regular S1 and S2. Chest: Clear. Abdomen: Soft. Bowel sounds are positive. Extremities: No cyanosis, edema. LABORATORIES: BUN is 11, creatinine 0.6. D-dimer is 718. WBC is 5.5, hemoglobin 12, hematocrit 36.0, and a platelet count of 253,000. Chest x-ray: No infiltrates and no effusions. IMPRESSION: 1. Chest pain, radiating to left arm and jaw. Rule out possible cardiac. Rule out ASHD. 2. Elevated D-dimer, nonspecific. Doubt a PE in view of normal O2 saturation and no tachycardia. 3. Hyperlipidemia. PLAN: Continue cardiac workup, as per Cardiology. A chest CTA is ordered. Continue aspirin. JERAMY ARTIS M.D. [id number]
[2019-02-26] MEDS ORDERED: SENNOSIDES 8.6MG TABLET (FP) PO PRN (23:19)
[2019-02-27] MEDS: INSULIN SLIDING SCALE (NOVOLOG) 1 VIAL SQ SCH ×2 (07:00→16:42)
--- NOTE | 2019-02-27 07:40 | PN ---
Progress Note, Physician Chief Complaint: cp History of Present Illness: feels her cp was related to psychosocial stress. no more cp. no sob, palpit, syncope - Current Medication List Current Medications: Active Medications Aspirin (Asa -) 81 mg PO DAILY [facility] Last Admin: 02/26/19 09:32 Dose: Not Given Insulin Aspart (Novolog Vial Sliding Scale -) 1 vial SQ BIDAC [facility]; Protocol Last Admin: 02/26/19 18:47 Dose: Not Given Senna (Senna -) 2 tab PO HS PRN PRN Reason: CONSTIPATION Last Admin: 02/27/19 00:23 Dose: 2 tab - Objective Vital Signs: Vital Signs Temperature 97.9 F 02/27/19 05:54 Pulse Rate 54 L 02/27/19 05:54 Respiratory Rate 18 02/27/19 05:54 Blood Pressure 150/63 02/27/19 05:54 O2 Sat by Pulse Oximetry (%) 100 02/26/19 21:00 Constitutional: Yes: Well Nourished, No Distress, Calm Cardiovascular: Yes: Regular Rate and Rhythm, S1, S2. No: Gallop, Murmur Respiratory: Yes: Regular, CTA Bilaterally. No: Accessory Muscle Use, Rales, Wheezes Extremities: No: Cold Edema: No Neurological: Yes: Alert, Oriented Psychiatric: No: Agitated Labs: CBC, BMP 02/26/19 00:50 02/26/19 06:05 INR, PTT INR 0.94 (0.83-1.09) 02/26/19 00:50 Assessment/Plan tele: NSR IMP: 1. Atypical CP occurring in setting of abd pain from [place] food, and known L shoulder pathology 2. DM 3. HTN--no reported history, bp mildly to moderately elevated here REC: 1. Cardiac enzymes x 3 negative, ECG normal. 2. D-dimer elevated. CTA chest no PE, LE venous dopplers no DVT. suspicion for PE extremely low given sx's not suggestive and no tachy/hypoxia. 3. Echo normal 4. Will do stress mibi friday as scheduled 5. start asa, statin (also for DM indication), metoprolol (also for BP)
[2019-02-27 08:20] LABS: BASO % 0.3 % (0-2.0); EOS % 2.1 % (0-4.5); HEMATOCRIT 33.3 % (32.4-45.2); MCH 27.9 pg (25.7-33.7); MEAN CELL VOLUME 84.8 fl (80-96); MEAN PLT VOLUME 7.9 fl (7.5-11.1); MONO % 6.9 % (3.8-10.2); NEUT % 39.7 % (42.8-82.8); PLATELET COUNT 240 K/MM3 (134-434); RBC 3.93 M/mm3 (3.60-5.2); RDW 13.7 % (11.6-15.6)
[2019-02-27 08:56] LABS: CALCIUM 8.7 mg/dL (8.5-10.1); CREATININE 0.4 mg/dL (0.55-1.3); POTASSIUM 3.9 mmol/L (3.5-5.1)
[2019-02-27] MEDS: ASPIRIN 81 MG CHEWABLE TABLETS PO SCH (10:09)
[2019-02-27] MEDS: metoPROLOL SUCCINATE 25 MG TAB.SR.24H (FP) PO SCH (10:09)
--- NOTE | 2019-02-27 12:40 | PN ---
Progress Note (short form) - Note Progress Note: Feels overall better. No CP or SOB. No acute events overnight. Intake & Output 02/24/19 02/25/19 02/26/19 02/27/19 23:59 23:59 23:59 23:59 Intake Total 480 620 Balance 480 620 Weight 180 lb 9.6 oz Last Vital Signs Temp Pulse Resp BP Pulse Ox 97.9 F 54 L 18 150/63 100 02/27/19 05:54 02/27/19 05:54 02/27/19 05:54 02/27/19 05:54 02/26/19 21:00 Active Medications Aspirin (Asa -) 81 mg PO DAILY [facility] Last Admin: 02/27/19 10:09 Dose: 81 mg Atorvastatin Calcium (Lipitor -) 20 mg PO HS [facility] Insulin Aspart (Novolog Vial Sliding Scale -) 1 vial SQ BIDAC [facility]; Protocol Last Admin: 02/27/19 07:00 Dose: Not Given Metoprolol Succinate (Toprol Xl -) 25 mg PO DAILY [facility] Last Admin: 02/27/19 10:09 Dose: 25 mg Senna (Senna -) 2 tab PO HS PRN PRN Reason: CONSTIPATION Last Admin: 02/27/19 00:23 Dose: 2 tab Constitutional: Yes: NAD Eyes: Yes: WNL HENT: Yes: WNL Neck: Yes: WNL Cardiovascular: Yes: WNL Respiratory: Yes: Clear Gastrointestinal: Yes: WNL Genitourinary: Yes: WNL Musculoskeletal: Yes: WNL Extremities: Yes: WNL Edema: No Peripheral Pulses WNL: Yes Integumentary: Yes: WNL Neurological: Yes: WNL ...Motor Strength: WNL Psychiatric: Yes: WNL Labs: Laboratory Results - last 24 hr 02/26/19 02/26/19 02/26/19 13:07 18:06 22:38 WBC RBC Hgb Hct MCV MCH MCHC RDW Plt Count MPV Absolute Neuts (auto) Neutrophils % Lymphocytes % Monocytes % Eosinophils % Basophils % Nucleated RBC % Sodium Potassium Chloride Carbon Dioxide Anion Gap BUN Creatinine Est GFR (CKD-EPI)AfAm Est GFR (CKD-EPI)NonAf POC Glucometer 141 112 162 Random Glucose Calcium 02/27/19 02/27/19 02/27/19 05:50 07:41 07:41 WBC 5.0 RBC 3.93 Hgb 11.0 Hct 33.3 MCV 84.8 MCH 27.9 MCHC 33.0 RDW 13.7 Plt Count 240 MPV 7.9 Absolute Neuts (auto) 2.0 Neutrophils % 39.7 L Lymphocytes % 51.0 H Monocytes % 6.9 Eosinophils % 2.1 Basophils % 0.3 Nucleated RBC % 0 Sodium 141 Potassium 3.9 Chloride 107 Carbon Dioxide 28 Anion Gap 7 L BUN 11.0 Creatinine 0.4 L Est GFR (CKD-EPI)AfAm 122.31 Est GFR (CKD-EPI)NonAf 105.53 POC Glucometer 137 Random Glucose 130 H Calcium 8.7 Problem List - Problems (1) Elevated d-dimer Code(s): R79.89 - OTHER SPECIFIED ABNORMAL FINDINGS OF BLOOD CHEMISTRY (2) Chest pain, rule out acute myocardial infarction Code(s): R07.9 - CHEST PAIN, UNSPECIFIED (3) Abdominal pain Code(s): R10.9 - UNSPECIFIED ABDOMINAL PAIN Qualifiers: Abdominal location: generalized Qualified Code(s): R10.84 - Generalized abdominal pain (4) Diabetes Code(s): E11.9 - TYPE 2 DIABETES MELLITUS WITHOUT COMPLICATIONS IMP CHEST PAIN/SHOULDER PAIN R/O CARDIAC ELEVATED D-DIMER HLD PLAN FOR STRESS TEST ON FRIDAY [facility] MONITOR BLOOD SUGARS DR CLEMENS
--- NOTE | 2019-02-27 12:56 | PN ---
Progress Note, Physician Chief Complaint: EVENTS AND NOTES REVIEWED SCHEDULED FOR STRESS TEST FRIDAY - Current Medication List Current Medications: Active Medications Aspirin (Asa -) 81 mg PO DAILY [facility] Last Admin: 02/27/19 10:09 Dose: 81 mg Atorvastatin Calcium (Lipitor -) 20 mg PO HS [facility] Insulin Aspart (Novolog Vial Sliding Scale -) 1 vial SQ BIDAC [facility]; Protocol Last Admin: 02/27/19 07:00 Dose: Not Given Metoprolol Succinate (Toprol Xl -) 25 mg PO DAILY [facility] Last Admin: 02/27/19 10:09 Dose: 25 mg Senna (Senna -) 2 tab PO HS PRN PRN Reason: CONSTIPATION Last Admin: 02/27/19 00:23 Dose: 2 tab - Objective Vital Signs: Vital Signs Temperature 97.9 F 02/27/19 05:54 Pulse Rate 54 L 02/27/19 05:54 Respiratory Rate 18 02/27/19 05:54 Blood Pressure 150/63 02/27/19 05:54 O2 Sat by Pulse Oximetry (%) 100 02/26/19 21:00 Constitutional: Yes: No Distress Cardiovascular: Yes: Regular Rate and Rhythm Respiratory: Yes: SOB Genitourinary: Yes: WNL Musculoskeletal: Yes: WNL Extremities: Yes: WNL Edema: No Labs: CBC, BMP 02/27/19 07:41 02/27/19 07:41 INR, PTT INR 0.94 (0.83-1.09) 02/26/19 00:50 Problem List - Problems (1) Chest pain, rule out acute myocardial infarction Code(s): R07.9 - CHEST PAIN, UNSPECIFIED (2) Diabetes Code(s): E11.9 - TYPE 2 DIABETES MELLITUS WITHOUT COMPLICATIONS Assessment/Plan CARDIO/PULMONARY WORKUP IN PROGRESS ON TELEMETRY NO ALARMS STRESS FRIDAY CHECK CTA LUNGS WITH D-DIMER POSITIVE R/O PE NEGATIVE DVT PROPHYLAXIS OOB TO CHAIR
[2019-02-27] MEDS: POLYETHYLENE GLYCOL 3350 119 GM BTL PO SCH (13:11)
[2019-02-27] MEDS ORDERED: BISACODYL 5 MG TABLET.DR (FP) PO ONE (21:12)
[2019-02-27] MEDS: ATORVASTATIN CA 20 MG TABLET (FP) PO SCH (21:36)
[2019-02-27] MEDS ORDERED: Insulin (LOG) Aspart 100 UNITS/ML VIAL SQ STA (21:42)
[2019-02-28] MEDS: INSULIN SLIDING SCALE (NOVOLOG) 1 VIAL SQ SCH ×2 (07:23→16:40)
--- NOTE | 2019-02-28 09:56 | PN ---
Progress Note, Physician Chief Complaint: C/O WEAKNESS AFTER TAKING METOPROLOL FELT LEG WEAKNESS AND DOES NOT WANT TO TAKE HER 2ND DOSE - Current Medication List Current Medications: Active Medications Aspirin (Asa -) 81 mg PO DAILY [facility] Last Admin: 02/27/19 10:09 Dose: 81 mg Atorvastatin Calcium (Lipitor -) 20 mg PO HS [facility] Last Admin: 02/27/19 21:36 Dose: 20 mg Insulin Aspart (Novolog Vial Sliding Scale -) 1 vial SQ BIDAC [facility]; Protocol Last Admin: 02/28/19 07:23 Dose: Not Given Metoprolol Succinate (Toprol Xl -) 25 mg PO DAILY [facility] Last Admin: 02/27/19 10:09 Dose: 25 mg Polyethylene Glycol (Miralax (For Daily Use) -) 17 gm PO DAILY [facility] Last Admin: 02/27/19 13:11 Dose: 17 gm Senna (Senna -) 2 tab PO HS PRN PRN Reason: CONSTIPATION Last Admin: 02/27/19 00:23 Dose: 2 tab - Objective Vital Signs: Vital Signs Temperature 97.8 F 02/28/19 06:00 Pulse Rate 68 02/28/19 06:00 Respiratory Rate 18 02/28/19 06:00 Blood Pressure 149/71 02/28/19 06:00 O2 Sat by Pulse Oximetry (%) 98 02/27/19 21:00 Constitutional: Yes: Mild Distress Cardiovascular: Yes: Regular Rate and Rhythm Respiratory: Yes: WNL Gastrointestinal: Yes: WNL Genitourinary: Yes: WNL Musculoskeletal: Yes: WNL Edema: No Peripheral Pulses WNL: Yes Integumentary: Yes: WNL Wound/Incision: Yes: Clean/Dry Neurological: Yes: WNL ...Motor Strength: WNL Psychiatric: Yes: Other Labs: CBC, BMP 02/27/19 07:41 02/27/19 07:41 INR, PTT INR 0.94 (0.83-1.09) 02/26/19 00:50 Problem List - Problems (1) Chest pain, rule out acute myocardial infarction Code(s): R07.9 - CHEST PAIN, UNSPECIFIED (2) Diabetes Code(s): E11.9 - TYPE 2 DIABETES MELLITUS WITHOUT COMPLICATIONS Assessment/Plan STRES TEST IN MORNING CARDIOLOGY F/U CONSTIPATION RESOLVED OOB TO CHAIR NO ALARMS ON TELE
[2019-02-28] MEDS: ASPIRIN 81 MG CHEWABLE TABLETS PO SCH (10:46)
[2019-02-28] MEDS: POLYETHYLENE GLYCOL 3350 119 GM BTL PO SCH (10:47)
[2019-02-28] MEDS: metoPROLOL SUCCINATE 25 MG TAB.SR.24H (FP) PO SCH (10:47)
--- NOTE | 2019-02-28 11:42 | PN ---
Progress Note, Physician Chief Complaint: cp History of Present Illness: no cp, abd pain no sob, palpit feels dizziness which she thinks is from metoprolol (off balance, little LH) - Current Medication List Current Medications: Active Medications Aspirin (Asa -) 81 mg PO DAILY [facility] Last Admin: 02/28/19 10:46 Dose: 81 mg Atorvastatin Calcium (Lipitor -) 20 mg PO HS [facility] Last Admin: 02/27/19 21:36 Dose: 20 mg Insulin Aspart (Novolog Vial Sliding Scale -) 1 vial SQ BIDAC [facility]; Protocol Last Admin: 02/28/19 07:23 Dose: Not Given Polyethylene Glycol (Miralax (For Daily Use) -) 17 gm PO DAILY [facility] Last Admin: 02/28/19 10:47 Dose: 17 gm Senna (Senna -) 2 tab PO HS PRN PRN Reason: CONSTIPATION Last Admin: 02/27/19 00:23 Dose: 2 tab - Objective Vital Signs: Vital Signs Temperature 97.8 F 02/28/19 06:00 Pulse Rate 68 02/28/19 06:00 Respiratory Rate 18 02/28/19 06:00 Blood Pressure 149/71 02/28/19 06:00 O2 Sat by Pulse Oximetry (%) 98 02/27/19 21:00 Constitutional: Yes: Well Nourished, No Distress, Calm Cardiovascular: Yes: Regular Rate and Rhythm, S1, S2. No: Gallop, Murmur Respiratory: Yes: Regular, CTA Bilaterally. No: Accessory Muscle Use, Rales, Wheezes Extremities: No: Cold Edema: No Neurological: Yes: Alert, Oriented Psychiatric: No: Agitated Labs: CBC, BMP 02/27/19 07:41 02/27/19 07:41 INR, PTT INR 0.94 (0.83-1.09) 02/26/19 00:50 Assessment/Plan tele: NSR IMP: 1. Atypical CP occurring in setting of abd pain from [place] food, and known L shoulder pathology, triggered by intense mental stress at home 2. DM 3. HTN--no reported history, bp mildly to moderately elevated here REC: 1. Cardiac enzymes x 3 negative, ECG normal. 2. D-dimer elevated. CTA chest no PE, LE venous dopplers no DVT. suspicion for PE extremely low given sx's not suggestive and no tachy/hypoxia. 3. Echo normal 4. Will do stress mibi friday as scheduled 5. cont asa, statin (also for DM indication) for now 6. d/c metoprolol given pt feels it is causing new dizziness s.e. 7. bp mildly elevated--outpt f/u, would consider ARB also in light of DM status
--- NOTE | 2019-02-28 13:37 | PN ---
Progress Note (short form) - Note Progress Note: Feels overall better. No CP or SOB. No acute events overnight. Intake & Output 02/25/19 02/26/19 02/27/19 02/28/19 23:59 23:59 23:59 23:59 Intake Total 480 1260 120 Balance 480 1260 120 Weight 180 lb 9.6 oz Last Vital Signs Temp Pulse Resp BP Pulse Ox 97.7 F 75 18 131/71 97 02/28/19 10:00 02/28/19 10:00 02/28/19 10:00 02/28/19 10:00 02/28/19 09:00 Active Medications Aspirin (Asa -) 81 mg PO DAILY [facility] Last Admin: 02/28/19 10:46 Dose: 81 mg Atorvastatin Calcium (Lipitor -) 20 mg PO HS [facility] Last Admin: 02/27/19 21:36 Dose: 20 mg Insulin Aspart (Novolog Vial Sliding Scale -) 1 vial SQ BIDAC [facility]; Protocol Last Admin: 02/28/19 07:23 Dose: Not Given Polyethylene Glycol (Miralax (For Daily Use) -) 17 gm PO DAILY [facility] Last Admin: 02/28/19 10:47 Dose: 17 gm Senna (Senna -) 2 tab PO HS PRN PRN Reason: CONSTIPATION Last Admin: 02/27/19 00:23 Dose: 2 tab Constitutional: Yes: NAD Eyes: Yes: WNL HENT: Yes: WNL Neck: Yes: WNL Cardiovascular: Yes: WNL Respiratory: Yes: Clear Gastrointestinal: Yes: WNL Genitourinary: Yes: WNL Musculoskeletal: Yes: WNL Extremities: Yes: WNL Edema: No Peripheral Pulses WNL: Yes Integumentary: Yes: WNL Neurological: Yes: WNL ...Motor Strength: WNL Psychiatric: Yes: WNL Labs: Laboratory Results - last 24 hr 02/27/19 02/27/19 02/28/19 16:41 21:38 06:37 POC Glucometer 137 285 123 02/28/19 11:51 POC Glucometer 180 Problem List - Problems (1) Elevated d-dimer Code(s): R79.89 - OTHER SPECIFIED ABNORMAL FINDINGS OF BLOOD CHEMISTRY (2) Chest pain, rule out acute myocardial infarction Code(s): R07.9 - CHEST PAIN, UNSPECIFIED (3) Abdominal pain Code(s): R10.9 - UNSPECIFIED ABDOMINAL PAIN Qualifiers: Abdominal location: generalized Qualified Code(s): R10.84 - Generalized abdominal pain (4) Diabetes Code(s): E11.9 - TYPE 2 DIABETES MELLITUS WITHOUT COMPLICATIONS IMP CHEST PAIN/SHOULDER PAIN R/O CARDIAC ELEVATED D-DIMER: LOW CLINICAL SUSPICION HLD PLAN FOR STRESS TEST TOMORROW [facility] MONITOR BLOOD SUGARS DR CLEMENS
[2019-02-28] MEDS: ATORVASTATIN CA 20 MG TABLET (FP) PO SCH (22:07)
[2019-03-01] MEDS: INSULIN SLIDING SCALE (NOVOLOG) 1 VIAL SQ SCH ×2 (07:07→18:03)
[2019-03-01] MEDS ORDERED: REGADENOSON 0.4 MG/5 ML PRE-FILLED SYRINGE IVPUSH ONE (12:30)
[2019-03-01] MEDS: POLYETHYLENE GLYCOL 3350 119 GM BTL PO SCH (14:06)
[2019-03-01] MEDS: ASPIRIN 81 MG CHEWABLE TABLETS PO SCH (14:06)
--- NOTE | 2019-03-01 14:08 | DS ---
Physical Examination Vital Signs: Vital Signs Temperature 97.8 F 03/01/19 08:00 Pulse Rate 57 L 03/01/19 08:00 Respiratory Rate 18 03/01/19 08:00 Blood Pressure 147/82 03/01/19 08:00 O2 Sat by Pulse Oximetry (%) 98 02/28/19 20:47 Constitutional: Yes: Calm Cardiovascular: Yes: Regular Rate and Rhythm, S1, S2 Respiratory: Yes: CTA Bilaterally Gastrointestinal: Yes: Normal Bowel Sounds, Soft Neurological: Yes: Alert, Oriented Labs: CBC, BMP 02/27/19 07:41 02/27/19 07:41 Discharge Summary Reason For Visit: CHEST PAIN,RULE OUT MYOCARDIAL INFARCTION Current Active Problems Chest pain, rule out acute myocardial infarction (Acute) Elevated d-dimer (Acute) Hospital Course: 68 yr old female came in for chest pain h/o DM and hyperlipidemia found to have elevated D dimer CTA no PE Echo normal dOPPLER OF LEGS NO DVT got a stress test BP elevated started on losartan Condition: Stable - Instructions Disposition: HOME - Home Medications Comprehensive Discharge Medication List: Ambulatory Orders Glipizide [Glucotrol -] 5 mg PO DAILY 02/26/19
[2019-03-01 14:16] VITALS: TEMP 98.4
--- NOTE | 2019-03-01 16:36 | PN ---
Progress Note (short form) - Note Progress Note: no chest pain, palps, abd pain. dizziness improved after stopping metoprolol Vital Signs Period Temp Pulse Resp BP Sys/Liang Pulse Ox Last 24 Hr 97.4 F-99.0 F 57-76 16-20 133-151/62-84 98-98 Constitutional: Yes: Well Nourished, No Distress, Calm Cardiovascular: Yes: Regular Rate and Rhythm, S1, S2. No: Gallop, Murmur Respiratory: Yes: Regular, CTA Bilaterally. No: Accessory Muscle Use, Rales, Wheezes Extremities: No: Cold Edema: No Neurological: Yes: Alert, Oriented Psychiatric: No: Agitated Assessment/Plan tele: NSR IMP: 1. Atypical CP occurring in setting of abd pain from [employer] food, and known L shoulder pathology, triggered by intense mental stress at home 2. DM 3. HTN--no reported history, bp mildly to moderately elevated here REC: 1. Cardiac enzymes x 3 negative, ECG normal. 2. D-dimer elevated. CTA chest no PE, LE venous dopplers no DVT. suspicion for PE extremely low given sx's not suggestive and no tachy/hypoxia. 3. Echo normal 4. stress mibi mildly abnormal - mild to mod apical ischemia with nl LV function , no TID, low risk study. asymptomatic with atypical presenting symptoms, defer further testing. follow up as outpatient 5. cont asa, statin (also for DM indication) for now 6. d/c metoprolol given pt feels it is causing new dizziness s.e. 7. bp mildly elevated--outpt f/u, would consider ARB also in light of DM status stable for dc from cardiac perspective
[2019-03-01 18:38] VITALS: BP 155/76; PULSE 73
[2019-03-02] MEDS ORDERED: LOSARTAN POTASSIUM 25 MG TABLET PO SCH (06:00)
== END 2019-03-01 18:41 | disposition home or self-care (01) | DRG 313 ==
LOC: JER 23:51 → J4S 02-26 04:27 → OBSVTOIN 02-26 05:57
PROVIDERS: ADMIT Family Medicine; ATTEND Family Medicine
DX: R07.89 Other chest pain (principal); R79.89 Other specified abnormal findings of blood chemistry; E11.9 Type 2 diabetes mellitus without complications; R06.02 Shortness of breath; M54.9 Dorsalgia, unspecified; R42 Dizziness and giddiness; T44.7X5A Adverse effect of beta-adrenoreceptor antagonists, initial encounter; E87.5 Hyperkalemia; I10 Essential (primary) hypertension; K59.00 Constipation, unspecified; E78.5 Hyperlipidemia, unspecified; R00.1 Bradycardia, unspecified; R10.11 Right upper quadrant pain; I44.0 Atrioventricular block, first degree
CPT/HCPCS: 36415; 71045-TC-FY; 71275-TC; 78452-TC; 80048; 80053; 82465; 82550; 82962; 83036; 83880; 84484; 85025; 85379; 85610; 85730; 93005; 93010; 93017; 93306-TC; 93970-TC; 99284-25; A9502; G0378; J2785

== ENCOUNTER 2022-01-23 19:11 | Emergency (ER) | payer BC, OTHER ==
[2022-01-23 19:21] VITALS: TEMP 98.4; BMI 34.9
[2022-01-23] MEDS ORDERED: ACETAMINOPHEN 1000 MG/100 ML BAG IVPB ONE (20:03)
[2022-01-23] MEDS ORDERED: SODIUM CHLORIDE 0.9% 500 ML INFUS.BAG IV ONE (20:03)
[2022-01-23] MEDS ORDERED: METOCLOPRAMIDE HCL INJECTION 10 MG/2 ML VIAL IVPUSH ONE (20:03)
[2022-01-23] MEDS ORDERED: ACETAMINOPHEN INJECTION 100 ML IVPB ONE (21:06)
[2022-01-23] MEDS ORDERED: METOCLOPRAMIDE HCL INJECTION 10 MG/2 ML VIAL ONE (21:06)
[2022-01-23 21:34] LABS: BASO % 0.5 % (0-2.0); EOS % 0.4 % (0-4.5); HEMATOCRIT 41.5 % (32.4-45.2); HEMOGLOBIN 13.6 GM/dL (10.7-15.3); LYMPH % 31.6 % (8-40); MCH 27.7 pg (25.7-33.7); MCHC 32.7 g/dl (32.0-36.0); MEAN CELL VOLUME 84.7 fl (80-96); MONO % 7.8 % (3.8-10.2); NEUT % 59.7 % (42.8-82.8); PLATELET COUNT 271 10^3/uL (134-434); RDW 13.5 % (11.6-15.6); WHITE BLOOD COUNT 6.9 K/mm3 (4.0-10.0)
[2022-01-23 22:56] LABS: ALBUMIN 3.9 g/dl (3.4-5.0); BILIRUBIN,TOTAL 0.5 mg/dL (0.2-1); BLOOD UREA NITROGEN 12.3 mg/dL (7-18); CALCIUM 9.3 mg/dL (8.5-10.1); CREATININE 0.6 mg/dL (0.55-1.3); TOT PROT 7.7 g/dl (6.4-8.2)
[2022-01-24 00:05] VITALS: BP 144/78; PULSE 59
== END 2022-01-24 01:12 | disposition home or self-care (01) ==
LOC: JER 19:11
PROC: 3E033GC Introduction of Other Therapeutic Substance into Peripheral Vein, Percutaneous Approach (ICD-10-PCS; principal; 2022-01-23)
DX: R51.9 Headache, unspecified (principal); R20.2 Paresthesia of skin
CPT/HCPCS: 36415; 70450-TC; 80053; 84484; 85025; 93005; 93010; 99285-25

== ENCOUNTER 2022-02-23 21:26 | Emergency (ER) | payer BC ==
[2022-02-23 21:38] VITALS: BP 114/72; PULSE 83; RESP 19; TEMP 98.6; BMI 34.9
[2022-02-23] MEDS ORDERED: ACETAMINOPHEN 500 MG TABLET (FP) PO ONE (22:22)
== END 2022-02-23 23:03 | disposition home or self-care (01) ==
LOC: JERFT 21:26
DX: S63.502A Unspecified sprain of left wrist, initial encounter (principal)
CPT/HCPCS: 73110-TC-LT-FY; 73130-TC-LT-FY; 73502-TC-LT-FY; 99284-25

== ENCOUNTER 2022-07-21 18:04 | Emergency (ER) | payer BC ==
[2022-07-21 18:10] VITALS: BP 129/76; PULSE 83; RESP 18; TEMP 98; BMI 35.3
== END 2022-07-21 22:00 | disposition home or self-care (01) ==
LOC: JERFT 18:04 → JER 18:04 → JERFT 22:00
DX: M25.532 Pain in left wrist (principal); M25.512 Pain in left shoulder; W01.0XXA Fall on same level from slipping, tripping and stumbling without subsequent striking against object, initial encounter
CPT/HCPCS: 73030-TC-LT-FY; 73060-TC-LT-FY; 73090-TC-LT-FY; 73110-TC-LT-FY; 73130-TC-LT-FY; 99285-25

== ENCOUNTER 2023-11-29 15:40 | Emergency (ER) | payer BC ==
[2023-11-29 15:53] VITALS: TEMP 98.4; BMI 25.7
[2023-11-29] MEDS ORDERED: METHOCARBAMOL 500 MG TABLET ONE (17:17)
[2023-11-29] MEDS ORDERED: ACETAMINOPHEN INJECTION 100 ML IVPB ONE (17:17)
[2023-11-29] MEDS: ACETAMINOPHEN 1000 MG/100 ML BAG IVPB ONE (17:22)
[2023-11-29] MEDS: METHOCARBAMOL 500 MG TABLET PO ONE (17:22)
[2023-11-29 17:23] LABS: BASO % 0.5 % (0-2.0); EOS % 0.8 % (0-4.5); HEMATOCRIT 38.2 % (32.4-45.2); HEMOGLOBIN 12.8 GM/dL (10.7-15.3); LYMPH % 32.7 % (8-40); MCH 27.9 pg (25.7-33.7); MCHC 33.4 g/dl (32.0-36.0); MEAN CELL VOLUME 83.4 fl (80-96); MEAN PLT VOLUME 7.9 fl (7.5-11.1); MONO % 7.3 % (3.8-10.2); NEUT % 58.7 % (42.8-82.8); PLATELET COUNT 284 10^3/uL (134-434); RBC 4.58 M/mm3 (3.60-5.2); RDW 14.4 % (11.6-15.6); WHITE BLOOD COUNT 6.6 K/mm3 (4.0-10.0)
[2023-11-29 17:40] LABS: CHLORIDE 104 mmol/L (98-107); SODIUM 134 mmol/L (136-145)
[2023-11-29 17:42] LABS: ALBUMIN 3.5 g/dl (3.4-5.0); CALCIUM 9.3 mg/dL (8.5-10.1)
[2023-11-29 17:43] LABS: BLOOD UREA NITROGEN 13.6 mg/dL (7-18); CO2 27 mmol/L (21-32); GLUCOSE,RANDOM 244 mg/dL (74-106)
[2023-11-29 17:46] LABS: CREATININE 0.9 mg/dL (0.55-1.3); SGOT/AST 82 U/L (15-37)
[2023-11-29 17:47] LABS: BILIRUBIN,TOTAL 0.4 mg/dL (0.2-1); TOT PROT 7.6 g/dl (6.4-8.2)
[2023-11-29 17:48] LABS: ALK PHOS 210 U/L (45-117); ANION GAP 3 mmol/L (4-13); POTASSIUM 7.1 mmol/L (3.5-5.1); SGPT/ALT 29 U/L (13-61)
[2023-11-29 18:32] LABS: CHLORIDE 104 mmol/L (98-107); SODIUM 133 mmol/L (136-145)
[2023-11-29 18:34] LABS: CALCIUM 9.3 mg/dL (8.5-10.1); CO2 26 mmol/L (21-32)
[2023-11-29 18:35] LABS: BLOOD UREA NITROGEN 13.4 mg/dL (7-18); GLUCOSE,RANDOM 236 mg/dL (74-106)
[2023-11-29 18:38] LABS: CREATININE 0.9 mg/dL (0.55-1.3)
[2023-11-29 18:39] LABS: ANION GAP 3 mmol/L (4-13); POTASSIUM 8.2 mmol/L (3.5-5.1)
[2023-11-29 19:51] LABS: CALCIUM 9.6 mg/dL (8.5-10.1)
[2023-11-29 19:55] LABS: CREATININE 0.7 mg/dL (0.55-1.3)
[2023-11-29 20:42] VITALS: BP 130/76; PULSE 76; RESP 18
== END 2023-11-29 20:45 | disposition home or self-care (01) ==
LOC: JER 15:40
PROC: 3E033NZ Introduction of Analgesics, Hypnotics, Sedatives into Peripheral Vein, Percutaneous Approach (ICD-10-PCS; principal; 2023-11-29)
DX: R51.9 Headache, unspecified (principal); M54.6 Pain in thoracic spine; M54.2 Cervicalgia; M79.606 Pain in leg, unspecified
CPT/HCPCS: 36415; 80048; 80053; 82962; 83735; 85025; 93005; 93010; 96374; 99284-25; J0131

== ENCOUNTER 2024-09-09 00:15 | Inpatient (IN) | payer BC ==
[2024-09-09 02:35] LABS: BASO % 0.2 % (0-2.0); EOS % 0.8 % (0-4.5); HEMATOCRIT 36.7 % (32.4-45.2); HEMOGLOBIN 11.7 GM/dL (10.7-15.3); LYMPH % 43.8 % (8-40); MEAN CELL VOLUME 84.4 fl (80-96); MEAN PLT VOLUME 8.2 fl (7.5-11.1); MONO % 8.9 % (3.8-10.2); NEUT % 46.3 % (42.8-82.8); PLATELET COUNT 266 10^3/uL (134-434); RBC 4.35 M/mm3 (3.60-5.2); RDW 13.5 % (11.6-15.6); WHITE BLOOD COUNT 6.2 K/mm3 (4.0-10.0)
[2024-09-09 02:47] LABS: INR 1.02 (0.83-1.09); PROTHROMBIN TIME (PATIENT) 11.2 SEC (9.7-13.0)
[2024-09-09 02:50] LABS: ACTIVATED PTT 25.6 SECONDS (25.2-36.5)
[2024-09-09 02:58] LABS: POTASSIUM 4.2 mmol/L (3.5-5.1)
[2024-09-09 02:59] LABS: CALCIUM 9.3 mg/dL (8.5-10.1)
[2024-09-09 03:00] LABS: ALBUMIN 3.5 g/dl (3.4-5.0)
[2024-09-09 03:02] LABS: BLOOD UREA NITROGEN 14.5 mg/dL (7-18)
[2024-09-09 03:03] LABS: CREATININE 0.7 mg/dL (0.55-1.3)
[2024-09-09 03:07] LABS: BILIRUBIN,TOTAL 0.3 mg/dL (0.2-1)
[2024-09-09] MEDS: SODIUM CHLORIDE 1,000 ML IV SCH (03:36)
[2024-09-09] MEDS ORDERED: ATORVASTATIN CA 40 MG TABLET (FP) ONE ×2 (05:33→21:23)
[2024-09-09] MEDS ORDERED: ASPIRIN 81 MG CHEWABLE TABLETS ONE ×2 (05:34→09:33)
[2024-09-09] MEDS: ATORVASTATIN CA 40 MG TABLET (FP) PO ONE (05:36)
[2024-09-09] MEDS: ASPIRIN 81 MG CHEWABLE TABLETS PO ONE (05:36)
[2024-09-09] MEDS ORDERED: ACETAMINOPHEN 325 MG TABLET (FP) PO PRN (05:41)
[2024-09-09] MEDS ORDERED: ENOXAPARIN NA (PORCINE) 40 MG/0.4 ML DISP.SYRIN SQ ONE ×2 (06:38→09:33)
[2024-09-09] MEDS: ENOXAPARIN NA (PORCINE) 40 MG/0.4 ML DISP.SYRIN SQ SCH (06:43)
[2024-09-09] MEDS: INSULIN (LEVEMIR) 100 UNITS/ML UNITS SQ SCH ×3 (08:44→21:32)
[2024-09-09] MEDS ORDERED: INSULIN (LEVEMIR) 100 UNITS/ML UNITS SQ ONE (09:31)
[2024-09-09] MEDS ORDERED: POLYETHYLENE GLYCOL (HEALTHYLAX) 3350 17 GM PACKET ONE (09:32)
[2024-09-09] MEDS ORDERED: PANTOPRAZOLE 40 MG TABLET PO ONE (09:33)
[2024-09-09] MEDS ORDERED: LOSARTAN POTASSIUM 50 MG TABLET ONE (09:33)
[2024-09-09] MEDS: LOSARTAN POTASSIUM 50 MG TABLET PO SCH (09:34)
[2024-09-09] MEDS: POLYETHYLENE GLYCOL (HEALTHYLAX) 3350 17 GM PACKET PO SCH (09:34)
[2024-09-09] MEDS: PANTOPRAZOLE 40 MG TABLET PO SCH (09:34)
[2024-09-09] MEDS ORDERED: LOSARTAN POTASSIUM 25 MG TABLET PO SCH (10:00)
[2024-09-09] MEDS: INSULIN ASPART SLIDING SCALE (NOVOLOG) 1 VIAL SQ SCH ×2 (11:31→21:33)
[2024-09-09 12:08] LABS: PH,URINE 6.5 (5.0-8.0); URINE APPEARANCE CLEAR; URINE BILIRUBIN NEGATIVE (NEGATIVE); URINE COLOR YELLOW; URINE GLUCOSE (UA) 3+ (NEGATIVE); URINE KETONE NEGATIVE (NEGATIVE); URINE LEUK ESTERASE NEGATIVE (NEGATIVE); URINE NITRITE NEGATIVE (NEGATIVE); URINE PROTEIN NEGATIVE (NEGATIVE); URINE UROBILINOGEN 0.2 mg/dL (0.2-1.0)
[2024-09-09] MEDS ORDERED: ACETAMINOPHEN 325 MG TABLET (FP) ONE (12:28)
[2024-09-09] MEDS ORDERED: APIXABAN 5 MG TABLET ONE (21:22)
[2024-09-09] MEDS: ATORVASTATIN CA 40 MG TABLET (FP) PO SCH (21:32)
[2024-09-09] MEDS: APIXABAN 5 MG TABLET PO SCH (21:32)
[2024-09-09] MEDS ORDERED: ATORVASTATIN CA 20 MG TABLET (FP) PO SCH ×3 (22:00)
[2024-09-10 04:30] VITALS: BMI 32.1
[2024-09-10] MEDS: ASPIRIN COATED 81 MG TABLET.EC PO SCH (11:52)
[2024-09-10 14:51] VITALS: BP 148/76; PULSE 70; RESP 18; TEMP 98.6
== END 2024-09-10 18:36 | disposition home or self-care (01) | DRG 66 ==
LOC: JER 00:15 → JERBED 05:24 → OBSVTOIN 05:49 → J4S 23:09
PROVIDERS: ADMIT Internal Medicine; ATTEND Internal Medicine
DX: I63.89 Other cerebral infarction (principal); E78.5 Hyperlipidemia, unspecified; E11.9 Type 2 diabetes mellitus without complications; H40.9 Unspecified glaucoma; R29.6 Repeated falls; R29.702 NIHSS score 2; I25.10 Atherosclerotic heart disease of native coronary artery without angina pectoris; K59.00 Constipation, unspecified; M47.9 Spondylosis, unspecified; R51.9 Headache, unspecified
CPT/HCPCS: 36415; 70450-TC; 70496-TC; 70498-TC; 70551-TC; 80053; 80061; 81003; 82550; 82962; 83036; 84484; 85025; 85610; 85730; 86140; 86850; 86900; 86901; 93005; 93010; 93880-TC; 97116-GP; 97161-GP; 99285-25; G0378; Q9967